=== PATIENT | male | born 1960 | race Two or more races ===

== ENCOUNTER → 2020-09-11 13:56 | Outpatient (BNVA) | payer MEDICAID, SELFPAY | PROVIDERS: PCP Internal Medicine; Referring Provider Internal Medicine; Visit Provider Nurse Practitioner | DX: Z76.89 Persons encountering health services in other specified circumstances (principal) ==

== ENCOUNTER 2021-03-03 16:46 | Emergency (ER) | payer MEDICAID, SELFPAY ==
[2021-03-03 17:09] VITALS: BP 140/80; PULSE 80; RESP 16; TEMP 36.2; O2SAT 97; BMI 30.5
--- NOTE | 2021-03-03 19:51 | PC.NURSE ---
PT NOT IN WAITING ROOM WHEN CALLED.
== END 2021-03-03 19:53 | disposition left against medical advice (07) ==
PROVIDERS: Emergency Provider Internal Medicine
DX: H57.12 Ocular pain, left eye (principal); I10 Essential (primary) hypertension; F12.90 Cannabis use, unspecified, uncomplicated
CPT/HCPCS: 99281; 99282

== ENCOUNTER 2021-03-04 08:39 | Emergency (ER) | payer MEDICAID, SELFPAY ==
[2021-03-04 09:02] VITALS: BP 134/95; PULSE 96; RESP 16; TEMP 36.9; O2SAT 96; BMI 30.5
--- NOTE | 2021-03-04 09:27 | ED_ITS ---
HPI - Eye Problem General Chief complaint: Eye Problems Stated complaint: lt eye redness/swelling Time Seen by Provider: 03/04/21 09:27 Source: patient Mode of arrival: ambulatory Limitations: no limitations History of Present Illness HPI Narrative: scratched eye when he was removing contact, now with erythema and discharge chief complaint: eye redness Onset (ago): day(s) Onset description: gradual Duration: constant Location: left eye Eye Symptoms: burning, redness and pain Place: home Mechanism: direct trauma Severity: severe Related Data Previous Rx's Medication Instructions Recorded tamsulosin 0.4 mg capsule 0.4 mg PO DAILY 90 Days #90 cap 01/07/21 besifloxacin [Besivance] 1 drp OPHTHALMIC-LEFT TID 7 Days 03/04/21 #5 ml naproxen [Naprosyn] 500 mg PO BID #20 tab 03/04/21 Allergies Allergy/AdvReac Type Severity Reaction Status Date / Time ibuprofen [From MOTRIN] Allergy Unknown DIARRHEA, Verified 09/11/20 13:56 hives Review of Systems Constitutional: Constitutional: Reports no additional constitutional complaints Eyes: Eyes: Reports no additional eye complaints ENT: Denies dizziness Cardiovascular: Cardiovascular: Reports no additional cardiovascular complaints Respiratory: Respiratory: Reports as per HPI Gastrointestinal: Gastrointestinal: Reports no additional gastrointestinal complaints Musculoskeletal: Musculoskeletal: Reports no additional musculoskeletal complaints Integumentary/Breasts: Skin/Breast: Denies rash Neurologic: Reports system reviewed and no additional complaints, except as documented, Denies dizziness and Denies Sensory deficit (Neuro) Psychiatric: Psychiatric: Denies anxiety PMFSH Past Medical History Medical History Hypertension Surgical History No pertinent past surgical history Family History Family History Mother Artificial pacemaker Father Pancreatic cancer Social History Social History Household Members: None Housing: Apartment Alcohol intake: former Year quit: 2019 Smoking Status: Never smoker Smoked in Last 30 Days: No Use of substances other than those prescribed or required for medical reasons: Yes Substance Use Type: Marijuana Substance Use Frequency: Daily Advance Directives: No Advance Directives Information Provided: No Physical Exam Vital Signs: Vital Signs: Last Vital Signs Temp 98.4 F 03/04/21 09:02 Pulse 96 03/04/21 09:02 Resp 16 03/04/21 09:02 BP 134/95 H 03/04/21 09:02 Pulse Ox 96 03/04/21 09:02 Body Mass Index 30.5 Const: Other: Patient with obvious eye pain General: healthy appearing Nutritional Appearance: average body habitus Orientation/consciousness: oriented to person and patient oriented x3 Limitations: no limitations HENMT: Head: Yes normal to inspection Ears: external ears normal General nose exam: Normal external nose present Mouth: Normal oral and palatal mucosa present and oropharynx normal Throat: Yes posterior oropharynx normal Eyes: Other: Left eye very injected, fluoresciene staining shows corneal abrasion right in the center Neck: Other: supple Neck: Yes normal visual inspection Chest: Chest palpation & inspection: normal inspection of the chest Resp: Auscultation: clear to auscultation bilaterally Cardio: Jugular venous distension: no JVD Rate: regular rate Rhythm: regular rhythm Heart sounds: S1 normal heart sound present and S2 normal h eart sound present GI: Inspection: Yes normal to inspection Palpation (GI): Soft to palpation, nontender and No hepatosplenomegaly present Auscultation: normal bowel sounds : General: Yes no CVA tenderness Back/Spine/Pelvis: Back: no CVA tenderness Skin: General skin exam: no rashes or lesions noted Neuro: General: oriented to person and patient oriented x3 Cranial nerves: Yes CN's II-XII intact bilaterally Motor exam (neuro): 5/5 motor strength present throughout Sensory Exam: No Sensory deficit (Neuro) Extrem: General: Yes normal to inspection Psych: Appearance: grossly normal Procedures Procedure Narrative Procedure Narrative: left eye numbed with tetracaine, and sulfacetamide placed. Fluoresceine showed corneal abrasion to center of eye. MDM - Eye Problem Differential Diagnosis Differential diagnosis: Likely corneal abrasion and conjunctivitis Discharge Plan Discharge Clinical Impression: Acute iritis, Bacterial conjunctivitis Corneal abrasion Qualifiers: Encounter type: initial encounter Laterality: left Qualified Code(s): S05.02XA - Injury of conjunctiva and corneal abrasion without foreign body, left eye, initial encounter Patient Disposition: Home, Self-Care Instructions: Corneal Abrasion (ED) Additional Instructions: no contact wearing for 10 days Prescriptions: New naproxen [Naprosyn] 500 mg tablet 500 mg PO BID Qty: 20 RF: 0 Besivance 0.6 % drops,suspension 1 drp ophthalmic-Left TID 7 Days Qty: 5 RF: 0 No Action tamsulosin 0.4 mg capsule 0.4 mg PO DAILY 90 Days Qty: 90 RF: 2 Referrals: Lalo Montes De Oca [Physician] - 2 days
[2021-03-04] MEDS: Tetracaine HCl/PF 0.5% Oph Sol 4 ML DROPS 3 DROP EYE-LEFT (10:55)
[2021-03-04] MEDS: Fluorescein Sodium STRIP 1 STRIP EYE-LEFT (10:55)
[2021-03-04] MEDS: Sulfacetamide Sodium 10 % Oph 15 ML DRBTL 2 DROP EYE-LEFT (10:55)
== END 2021-03-04 10:59 | disposition home or self-care (01) ==
PROVIDERS: Emergency Provider Emergency Medicine
DX: H18.822 Corneal disorder due to contact lens, left eye (principal); H20.00 Unspecified acute and subacute iridocyclitis; H10.89 Other conjunctivitis; I10 Essential (primary) hypertension; F12.90 Cannabis use, unspecified, uncomplicated
CPT/HCPCS: 99283; 99284

== ENCOUNTER → 2021-09-06 09:16 | Outpatient (BNVA) | payer MEDICAID, SELFPAY | PROVIDERS: PCP Nurse Practitioner Primary Care; Referring Provider Nurse Practitioner Primary Care; Visit Provider Internal Medicine Cardiovascular Disease | DX: R55 Syncope and collapse (principal) | CPT/HCPCS: 93005; 99202 ==

== ENCOUNTER 2021-09-10 09:39 | Outpatient (REF) | payer MEDICAID, SELFPAY ==
--- NOTE | ~2021-09-10 | CT_ITS ---
EXAMINATION: CT HEAD WITHOUT CONTRAST CLINICAL INFORMATION: Dizziness. Giddiness. COMPARISON: CT head 01/26/2020. TECHNIQUE: Contiguous axial imaging was performed from the skull base to vertex without intravenous administration of contrast. This CT examination was performed using dose optimization techniques as appropriate, variously including the following: *Automated exposure control *Adjustment of mA and/or kV according to patient size (this includes techniques or standardized protocols for targeted exams where dose is matched to indication/reason for exam; i.e. extremities or head) *Use of iterative reconstruction technique DLP: 797 mGy-cm FINDINGS: No intracranial hemorrhage, tumors or acute infarcts are noted. Mild diffuse commensurate prominence of ventricles and sulci is noted. No focal parenchymal lesions the brain visualized. Minimal segmental calcific atherosclerotic plaques are noted in the cavernous portions of the internal carotid arteries. The orbits and globes are normal in appearance. The nasal bones are partially included in the image [id number] and demonstrate bilateral contour irregularities consistent with the sequela of remote trauma. No significant opacification of the visualized paranasal sinuses, mastoid air cells and middle ear cavities. CT/CT head/brain wo con IMPRESSION: -No acute intracranial abnormalities. 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
== END 2021-09-10 09:40 | disposition home or self-care (01) ==
LOC: HO.CT 09:39
PROVIDERS: Visit Provider Emergency Medicine
DX: R42 Dizziness and giddiness (principal)
CPT/HCPCS: 70450

== ENCOUNTER 2021-09-23 10:14 | Outpatient (REF) | payer MEDICAID, SELFPAY ==
--- NOTE | ~2021-09-23 | US_ITS ---
EXAMINATION: US EXTRACRANIAL CAROTID DUPLEX, BILATERAL CLINICAL INFORMATION: This is a 60-year-old male with dizziness and giddiness. Carotid artery disease. COMPARISON: None TECHNIQUE: Real-time ultrasound and Doppler techniques (integrating B-mode 2-D vascular images, Doppler spectral analysis and color-flow Doppler imaging) were utilized to interrogate the extracranial carotid arteries, the vertebral arteries and proximal subclavian arteries bilaterally. The degree of stenosis is determined by criteria similar to NASCET. FINDINGS: Right Side: 1. There is minimal atherosclerotic plaque seen in the bifurcation/proximal ICA region. 2. The common carotid artery PSV proximally is 89 cm/s and distally 89 cm/s. 3. The proximal internal carotid artery velocities are 59 cm/s systolic and 25 cm/s diastolic. 4. The proximal external carotid artery PSV is 93 cm/s. 5. The vertebral artery shows antegrade flow. 6. The subclavian artery waveforms are normal. Left Side: 1. There is a normal atherosclerotic plaque seen in the bifurcation/proximal ICA region. 2. The common carotid artery PSV proximally is 113 cm/s and distally 66 cm/s. 3. The proximal internal carotid artery velocities are 92 cm/s systolic and 28 cm/s diastolic. 4. The proximal external carotid artery PSV is 83 cm/s. 5. The vertebral artery shows antegrade flow. 6. The subclavian artery waveforms are normal. US/US carotid duplex BI IMPRESSION: 1. RIGHT: Minimal, non-hemodynamically significant stenosis of the proximal right internal carotid artery corresponding to a 0-49% stenosis by velocity criteria. 2. LEFT: Minimal, non-hemodynamically significant stenosis of the proximal left internal carotid artery corresponding to a 0-49% stenosis by velocity criteria.
== END 2021-09-23 10:15 | disposition home or self-care (01) ==
LOC: HO.US 10:14
PROVIDERS: Visit Provider Emergency Medicine
DX: R42 Dizziness and giddiness (principal)
CPT/HCPCS: 93880

== ENCOUNTER → 2022-01-06 09:27 | Outpatient (REF) | payer MEDICAID, SELFPAY ==
--- NOTE | 2022-01-06 09:30 | CA_ITS ---
Transthoracic Echocardiogram Patient (Last, First, Middle): Dinesh Rivas, Gender: Male Date of : 1960 Age: 61 Procedure Date: 01/06/2022 Procedure Type: Transthoracic Echocardiogram Location: OP Height: 170.18 cm Weight: 92.53 kg BSA: 2.04 m2 Heart Rate: bpm BP: 132 / 80 mmHg Clinical Trial Associate: DSChristopher Referring MD: Eulalio Yuen MD Symptoms: R55 - Syncope and collapse Conclusions: - Normal left ventricular size, thickness, systolic function, and wall motion. The visually estimated ejection fraction is between 55-60%. - Normal right ventricular cavity size and systolic function. Findings Left Ventricle Normal left ventricular size, thickness, systolic function, and wall motion. The visually estimated ejection fraction is between 55-60%. Diastolic function is normal for age. Right Ventricle Normal right ventricular cavity size and systolic function. Atria Both atria are normal in size. Aortic Valve Normal aortic valve structure and function. There is no aortic valve stenosis. There is no aortic valve regurgitation. Mitral Valve Normal mitral valve structure and function. There is no mitral valve regurgitation. There is no mitral valve stenosis. Pulmonic Valve Normal pulmonic valve structure and function. Tricuspid Valve Normal tricuspid valve structure. There is trace tricuspid valve regurgitation. Indeterminate right atrial pressure. PASP = 20 + right atrial pressure. Great Vessels All visible segments of the aorta are normal in size. The visualized portions of the pulmonary artery and branches are normal. Venous The inferior vena cava was not well visualized. Pericardium/Pleural There is no evidence of pericardial effusion. Cysts are noted in the liver. Prior Study Comparison No significant change compared to prior study dated: 02/13/2008. Measurements 2D Linear Measurements IVSd: 0.98 0.6-0.9/0.6-1.0 cm LVIDd: 4.76 3.9-5.3/4.2-5.9 cm LVIDd Index: 2.33 2.4-3.2/2.2-3.1 cm/m2 LVIDs: 3.15 2.0-3.6 cm LVPWd: 0.94 0.7-1.1 cm LA Diam: 3.50 2.7-3.8/3.0-4.0 cm LAIDs Index: 1.72 1.5-2.3 cm/m2 LV Mass: 197.42 67-162/88-224 g LV Mass Index: 96.77 43-95/49-115 g/m2 LVOT Diam: 2.20 3.0+(-)1.3 cm 2D Systolic Function EF 4C: 62.10 >55% EF 2C: 66.10 >55% EF BiP: 62.80 >55% Mitral Valve MV Pk E: 0.42 MV PK A: 0.57 MV Decel Time: 151.00 E/A: 0.70 E'Lateral: 11.20 E'Medial: 5.22 E/E' Med: 8.00 E/E' Lat: 3.80 PHT: 44.00 MVA PHT: 5.00 Decel Norman: 2.78 Aortic Valve AoV Pk Tonio: 0.99 AoV Pk Grad: 4.00 LVOT LVOT Pk Tonio: 1.01 LVOT Mn Tonio: 0.72 LVOT VTI: 0.19 LVOT Pk Grad: 4.00 LVOT Mn Grad: 2.00 LVOT Diam: 2.20 LVOT Area: 3.80 Diastolic Function MV Pk E: 0.42 MV Pk A: 0.57 E/A: 0.70 E'Medial: 5.22 E/E' Med: 8.00 E' Laterial: 11.20 E/E' Lat: 3.80 Right Ventricle TAPSE (mm): 1.89 TVS' Tonio: 14.90 Tricuspid Valve TR Pk Tonio: 2.05 TR Pk Grad: 17.00 RA Press: 3.00 RVSP: 20.00 Great Vessels Aorta Ao Asc: 3.30 2.1-3.4 cm Updated in Other Vendor System with Status of Final Eulalio Yuen MD electronically signed on 01/06/2022 10:40:42 PM with status of Final
== END ==
LOC: HO.CARD 09:27
PROVIDERS: Visit Provider Internal Medicine Cardiovascular Disease
DX: R55 Syncope and collapse (principal)
CPT/HCPCS: 93306

== ENCOUNTER → 2022-03-29 08:40 | Outpatient (BNVA) | payer MEDICAID, SELFPAY | PROVIDERS: PCP Nurse Practitioner Primary Care; Visit Provider Nurse Practitioner Family | DX: G47.00 Insomnia, unspecified (principal); R06.81 Apnea, not elsewhere classified; R06.83 Snoring | CPT/HCPCS: 99202 ==

== ENCOUNTER → 2022-04-20 09:52 | Outpatient (REF) | payer MEDICAID, SELFPAY | LOC: HO.SL 09:52 | PROVIDERS: PCP Nurse Practitioner Primary Care; Visit Provider Nurse Practitioner Family | DX: Z13.89 Encounter for screening for other disorder (principal) ==

== ENCOUNTER → 2022-06-23 09:40 | Outpatient (REF) | payer MEDICAID, SELFPAY | LOC: HO.SL 09:40 | PROVIDERS: PCP Nurse Practitioner Primary Care; Visit Provider Nurse Practitioner Family | DX: R06.83 Snoring (principal); R06.81 Apnea, not elsewhere classified; G47.00 Insomnia, unspecified | CPT/HCPCS: 95806 ==

== ENCOUNTER → 2022-07-13 08:46 | Outpatient (BNVA) | payer MEDICAID, SELFPAY | PROVIDERS: PCP Nurse Practitioner Primary Care; Visit Provider Nurse Practitioner | DX: K74.60 Unspecified cirrhosis of liver (principal); B18.2 Chronic viral hepatitis C; R76.8 Other specified abnormal immunological findings in serum | CPT/HCPCS: 99212 ==

== ENCOUNTER → 2022-08-16 09:43 | Outpatient (BNVA) | payer MEDICAID, SELFPAY | PROVIDERS: PCP Nurse Practitioner Primary Care; Visit Provider Nurse Practitioner Family | DX: G47.33 Obstructive sleep apnea (adult) (pediatric) (principal); G47.00 Insomnia, unspecified | CPT/HCPCS: 99212 ==

== ENCOUNTER 2022-09-12 09:17 | Outpatient (REF) | payer MEDICAID, SELFPAY ==
[2022-09-12 09:39] LABS: MANUAL DIFF FLAG NO
[2022-09-12 10:11] LABS: Basophils Absolute Auto 0.1 X10*3/uL (0.0-0.2); Basophils Percent Auto 0.6 % (0-2); Eosinophils Absolute Auto 0.2 X10*3/uL (0.0-0.4); Eosinophils Percent Auto 2.1 % (0-4); Hemoglobin 14.6 g/dl (14.0-18.0); Imm Gran Abs Auto 0.02 X10*3/uL (0.00-0.03); Imm Gran Pct Auto 0.3 % (0.0-0.4); Lymphocytes Absolute Auto 2.4 X10*3/uL (1.2-4.9); Lymphocytes Percent Auto 29.4 % (20-40); Mean Corpuscular HGB Conc 33.2 g/dl (31.0-36.0); Mean Corpuscular Hemoglobin 30.4 pg (27.0-33.0); Mean Corpuscular Volume 91.5 fL (80.0-98.0); Mean Platelet Volume 10.8 fL (9.4-12.4); Monocytes Absolute Auto 0.5 X10*3/uL (0.1-1.2); Monocytes Percent Auto 5.6 % (2-11); Platelet Count 179 X10*3/uL (160-400); Red Blood Count 4.81 X10*6/uL (4.60-5.80); Red Cell Distribution Width 13.7 % (11.0-16.0)
[2022-09-12 10:59] LABS: Alanine Aminotransferase 53 U/L (0-40); Albumin Level 4.8 g/dL (3.5-5.0); Alkaline Phosphatase 55 U/L (39-117); Anion Gap 17 (12-20); Aspartate Amino Transferase 85 U/L (5-37); Blood Urea Nitrogen 10 mg/dL (9-16); Calcium 9.4 mg/dL (8.4-10.2); Carbon Dioxide 24 mmol/L (22-29); Chloride 99 mmol/L (96-108); Estimated Glomerular Filt Rate > 60; Gamma Glutamyl Transpeptidase 138 U/L (11-51); Glucose Random 101 mg/dL (60-115); Potassium 4.1 mmol/L (3.3-5.1); Sodium 136 mmol/L (135-145); Total Protein 9.3 g/dL (6.5-8.0)
[2022-09-12 11:00] LABS: HBS Num1 1.01 mIU/mL (0-7.99); HBc Num1 7.87 S/CO (0.00-0.79); ~Hepatitis B Surface Antibody NONREACTIVE (Nonreactive)
[2022-09-12 11:04] LABS: Ferritin 599 ng/mL (20-250)
[2022-09-12 15:16] LABS: HBc Num2 6.18 S/CO
[2022-09-12 15:18] LABS: HBc Num3 7.88 S/CO; Hepatitis B Core Antibody Reactive (Nonreactive)
[2022-09-13 08:28] LABS: Hepatitis B Core Antibody IgM NON-REACTIVE (NON-REACTIVE)
[2022-09-13 13:52] LABS: Alpha Fetoprotein 9.5 ng/mL (<6.1)
[2022-09-15 13:41] LABS: Smooth Muscle Antibody <20 U (<20)
[2022-09-15 14:32] LABS: Mitochondrial Antibodies NEGATIVE (NEGATIVE)
[2022-09-15 15:01] LABS: Hepatitis B Viral DNA Qn - cp <1.00 NOT DETECTED Log IU/mL (NOT DETECTED); Hepatitis B Viral DNA Qn-IU/mL <10 NOT DETECTED IU/mL (NOT DETECTED)
== END 2022-09-12 09:18 | disposition home or self-care (01) ==
LOC: HO.LAB 09:17
PROVIDERS: PCP Nurse Practitioner Primary Care; Visit Provider Nurse Practitioner
DX: B18.2 Chronic viral hepatitis C (principal); K74.60 Unspecified cirrhosis of liver; R76.8 Other specified abnormal immunological findings in serum
CPT/HCPCS: 36415; 80053; 82105; 82728; 82977; 85025; 86015; 86255; 86256; 86704; 86705; 86706; 87517

== ENCOUNTER 2022-10-12 08:55 | Outpatient (REF) | payer MEDICAID, SELFPAY ==
--- NOTE | ~2022-10-12 | US_ITS ---
EXAMINATION: US ABDOMEN COMPLETE CLINICAL INFORMATION: Unspecified cirrhosis of liver. COMPARISON: CT abdomen 03/03/2020. Ultrasound abdomen complete 01/30/2018 and 07/20/2017. TECHNIQUE: Real-time imaging of the abdominal viscera. FINDINGS: PANCREAS: Most of the pancreas is obscured by overlying gas. ABDOMINAL AORTA: The proximal and distal abdominal aorta is normal caliber. The mid segment is not visualized. INFERIOR VENA CAVA: Visualized portions are normal. LIVER: The liver is normal in size. The liver contour is normal. The liver is heterogeneous with mild increased liver echogenicity. No focal lesion seen. No focal hepatic lesion. There is no intrahepatic biliary duct dilatation seen. GALLBLADDER: Gallbladder wall thickness is 0.2 mL in The gallbladder is significantly distended measuring 15 cm in length. There is no evidence of stones, sludge, polyps, wall thickening or pericholecystic fluid. COMMON BILE DUCT: Normal in caliber measuring 0.3 cm in diameter. RIGHT KIDNEY: There is anechoic cyst in the upper pole laterally measuring 1.0 x 0.7 x 0.8 cm. No hydronephrosis or renal calculi. The kidney measures 11.6 cm in maximum dimension. LEFT KIDNEY: Normal. No hydronephrosis. No renal calculi or focal parenchymal lesions. The kidney measures 10.2 cm in maximum dimension. SPLEEN: Normal. The spleen measures 10.5 cm in maximum dimension. FREE FLUID: None. US/US abdomen complete IMPRESSION: Heterogeneous liver with mild increased echogenicity. No focal lesion seen. Enlarged gallbladder without echogenic stones or wall thickening. Small cyst upper pole right kidney.
== END 2022-10-12 08:56 | disposition home or self-care (01) ==
LOC: HO.US 08:55
PROVIDERS: PCP Nurse Practitioner Primary Care; Visit Provider Nurse Practitioner
DX: K74.60 Unspecified cirrhosis of liver (principal); B18.2 Chronic viral hepatitis C; R76.8 Other specified abnormal immunological findings in serum
CPT/HCPCS: 76700

== ENCOUNTER 2022-11-25 09:50 | Outpatient (REF) | payer MEDICAID, SELFPAY ==
[2022-11-25 17:33] LABS: Urine Cytology See Pathology rpt
== END 2022-11-25 09:51 | disposition home or self-care (01) ==
LOC: HO.LAB 09:50
PROVIDERS: PCP Nurse Practitioner Primary Care; Visit Provider Nurse Practitioner Family
DX: R31.29 Other microscopic hematuria (principal); R39.15 Urgency of urination; Q61.00 Congenital renal cyst, unspecified; F12.90 Cannabis use, unspecified, uncomplicated; Z79.899 Other long term (current) drug therapy; Z87.891 Personal history of nicotine dependence
CPT/HCPCS: 88112; 99202

== ENCOUNTER 2022-12-15 09:15 | Outpatient (REF) | payer MEDICAID, SELFPAY ==
--- NOTE | ~2022-12-15 | CT_ITS ---
EXAMINATION: CT ABDOMEN AND PELVIS WITHOUT AND WITH CONTRAST CLINICAL INFORMATION: Microscopic hematuria. COMPARISON: CT abdomen 03/03/2020. TECHNIQUE: Multidetector volumetric imaging was performed of the abdomen and pelvis before and after the IV administration of 85 mL of Omnipaque 350 intravenous contrast. Sagittal and coronal reformatted images were obtained on the technologist's workstation. This CT examination was performed using dose optimization techniques as appropriate, variously including the following: *Automated exposure control *Adjustment of mA and/or kV according to patient size (this includes techniques or standardized protocols for targeted exams where dose is matched to indication/reason for exam; i.e. extremities or head) *Use of iterative reconstruction technique DLP: 793 mGy-cm FINDINGS: LUNG BASES: The visualized lung bases are unremarkable. LIVER, GALLBLADDER, AND BILIARY TREE: Hypertrophy of the left hepatic lobe with subtle micronodular contour consistent with cirrhosis. There is an ill-defined area of low-attenuation measuring 7.5 x 2.6 x 3.0 cm centered in segment 4A. This is newly apparent compared to prior. Hydropic appearing gallbladder without stones, mural thickening, or pericholecystic fluid. The appearance is similar to prior. There is no biliary ductal dilatation. PANCREAS: No discrete pancreatic mass. No ductal dilatation. SPLEEN: Normal size. ADRENAL GLANDS: No adrenal mass. KIDNEYS AND URETERS: Hyperdense renal pyramids on noncontrast CT. Punctate nonobstructing calculus in the lower pole of the right kidney 8.8 cm from the skin surface. No hydroureteronephrosis. Symmetric nephrograms. Simple cyst in the mid right kidney. Other tiny parenchymal hypodensities too small to characterize but likely cysts. BLADDER: Tethering of the bladder to the left. No bladder calculus or discrete bladder mass. GASTROINTESTINAL TRACT: Small bowel is normal in caliber. The appendix is normal. Mild diverticulosis of the colon. ABDOMINAL WALL: Fat-containing direct left inguinal hernia with bladder tethering. LYMPH NODES: No lymphadenopathy. VASCULAR: No abdominal aortic aneurysm. Mild aortoiliac atherosclerosis. PELVIC VISCERA: Enlarged prostate OSSEOUS STRUCTURES: No suspicious osseous lesions. Degenerative changes in the spine. CT/CT abdomen pelvis wo/w IV con IMPRESSION: Punctate nonobstructing calculus in the lower right kidney. Ill-defined area of low-attenuation measuring 7.5 cm centered in segment 4A of the liver. This is nonspecific. This could represent an unusual distribution of fatty infiltration, focal fibrosis, but an infiltrating hepatic mass cannot be excluded, especially in a patient with a history of chronic liver disease. Recommend further evaluation with liver mass protocol MRI. Fleischner guidelines were followed.
[2022-12-15] MEDS: iohexoL 350 MG/ML 100 ML INFUS..BTL IV (09:52)
[2022-12-19 14:24] LABS: Creatinine POC 0.9 mg/dL (0.5-1.4); GFR POC 60
== END 2022-12-15 09:16 | disposition home or self-care (01) ==
LOC: HO.CT 09:15
PROVIDERS: PCP Nurse Practitioner Primary Care; Visit Provider Nurse Practitioner Family
DX: R31.29 Other microscopic hematuria (principal)
CPT/HCPCS: 74178; 82565; Q9967

== ENCOUNTER → 2023-01-23 09:20 | Outpatient (BNVA) | payer MEDICAID, SELFPAY | PROVIDERS: PCP Nurse Practitioner Primary Care; Visit Provider Surgery | DX: K42.9 Umbilical hernia without obstruction or gangrene (principal) | CPT/HCPCS: 99202 ==

== ENCOUNTER → 2023-02-01 09:08 | Outpatient (BNVA) | payer MEDICAID, SELFPAY | PROVIDERS: PCP Nurse Practitioner Primary Care; Visit Provider Urology | DX: Z12.5 Encounter for screening for malignant neoplasm of prostate (principal); R31.29 Other microscopic hematuria; N20.0 Calculus of kidney; Z87.891 Personal history of nicotine dependence | CPT/HCPCS: 51798; 99212 ==

== ENCOUNTER 2023-02-21 07:06 | Day surgery (SDC) | payer MEDICAID, SELFPAY ==
--- NOTE | 2023-02-17 11:09 | HO.ANESPROP2 ---
Documented by User: Charis Castillo NP 02/17/23 11:14 HPI - Anesthesia Eval Consult details Narrative: 62yo M for Cystoscopy & possible Bladder Biopsy PMFSH Active Problems Active Problems: All Active Problems (Updated 02/01/23 @ 10:08 by Zoraida Ann) History of nicotine use (Acute) Kidney stone (Acute) Screening PSA (prostate specific antigen) (Acute) Umbilical hernia (Acute) Microscopic hematuria (Acute) ANA (obstructive sleep apnea) (Acute) Insomnia (Acute) Witnessed apneic spells (Acute) Snoring (Acute) History of alcohol abuse (Acute) Erectile dysfunction (Acute) BPH (benign prostatic hyperplasia) (Acute) Chronic idiopathic constipation (Acute) GERD (gastroesophageal reflux disease) (Acute) Hepatitis B antibody positive (Acute) Hypothyroid (Acute) Chronic hepatitis C (Acute) Syncope (Acute) Cirrhosis (Acute) Past Medical History Medical History (Updated 02/17/23 @ 11:10 by Charis Castillo NP) Chronic hepatitis C Chronic idiopathic constipation Cirrhosis GERD (gastroesophageal reflux disease) History of alcohol abuse Hypertension Hypothyroid ANA (obstructive sleep apnea) Umbilical hernia Family History Family History Mother Artificial pacemaker Father Pancreatic cancer Surgical History Surgical History (Updated 02/21/23 @ 07:14 by Marleen Muller) History of removal of cyst Hx of chest tube placement Social History Social History Household Members: None Housing: Apartment Do you presently have visiting nurse or other home services: No Alcohol intake: current Alcohol intake frequency: a few times a month Patient Tobacco Use Status: Never used Tobacco Use of substances other than those prescribed or required for medical reasons: Yes Substance Use Type: Marijuana Have you been hit, kicked, punched, or otherwise hurt by someone within the past year? If so, by whom?: No Are you DNR?: No Advance Directives: No Advance Directives Information Provided: Yes Advance Directives on File: No Poor oral hygiene: Yes (partial upper) Meds Allergies Allergy/AdvReac Type Severity Reaction Status Date / Time ibuprofen [From MOTRIN] Allergy Unknown Itching Verified 02/21/23 07:12 Home Medications Medication Instructions Recorded Confirmed Last Taken Type levothyroxine 75 mcg tablet 75 mcg PO DAILY 09/06/21 02/21/23 02/21/23 01:30 History lisinopril 10 1 tab PO DAILY 09/06/21 02/21/23 02/20/23 History mg-hydrochlorothiazide 12.5 mg tablet rosuvastatin 5 mg tablet 5 mg PO DAILY 06/07/22 02/21/23 Unknown History melatonin 5 mg tablet 10 mg PO BEDTIME 07/13/22 02/21/23 Unknown History Exam Exam Date and Time: February 17, 2023 1109 Height,Weight and Vital Signs: Height 5 ft 7 in Weight 87.09 kg Pertinent Lab Results Pertinent Lab Results: Laboratory Tests 09/12/22 09/12/22 09:36 09:36 WBC 8.0 Hgb 14.6 Hct 44.0 Plt Count 179 Sodium 136 Potassium 4.1 Chloride 99 Carbon Dioxide 24 BUN 10 Creatinine 0.99 Laboratory Tests 09/12/22 09:36 Ferritin 599 H Total Bilirubin 1.0 GGT 138 H AST 85 H ALT 53 H Alkaline Phosphatase 55 Narrative Narrative: ECHO 2021 Conclusions: - Normal left ventricular size, thickness, systolic function, and wall motion. The visually estimated ejection fraction is between 55-60%.? - Normal right ventricular cavity size and systolic function.? ? Assessment and Plan Assessment Anesthesia Assessment: Chart Reviewed Documented by User: Sallie Dover MD 02/21/23 08:31 [facility] Past Medical History Medical History (Updated 02/17/23 @ 11:10 by Charis Castillo NP) Chronic hepatitis C Chronic idiopathic constipation Cirrhosis GERD (gastroesophageal reflux disease) History of alcohol abuse Hypertension Hypothyroid ANA (obstructive sleep apnea) Umbilical hernia Family History Family History Mother Artificial pacemaker Father Pancreatic cancer Family history of problems with anesthesia: No Surgical History Surgical History (Updated 02/21/23 @ 07:14 by Marleen Muller) History of removal of cyst Hx of chest tube placement History of Problems with Anesthesia: No Social History Social History Household Members: None Housing: Apartment Do you presently have visiting nurse or other home services: No Alcohol intake: current Alcohol intake frequency: a few times a month Patient Tobacco Use Status: Never used Tobacco Use of substances other than those prescribed or required for medical reasons: Yes Substance Use Type: Marijuana Have you been hit, kicked, punched, or otherwise hurt by someone within the past year? If so, by whom?: No Are you DNR?: No Advance Directives: No Advance Directives Information Provided: Yes Advance Directives on File: No Poor oral hygiene: Yes (partial upper) Meds Allergies Allergy/AdvReac Type Severity Reaction Status Date / Time ibuprofen [From MOTRIN] Allergy Unknown Itching Verified 02/21/23 07:12 Home Medications Medication Instructions Recorded Confirmed Last Taken Type levothyroxine 75 mcg tablet 75 mcg PO DAILY 09/06/21 02/21/23 02/21/23 01:30 History lisinopril 10 1 tab PO DAILY 09/06/21 02/21/23 02/20/23 History mg-hydrochlorothiazide 12.5 mg tablet rosuvastatin 5 mg tablet 5 mg PO DAILY 06/07/22 02/21/23 Unknown History melatonin 5 mg tablet 10 mg PO BEDTIME 07/13/22 02/21/23 Unknown History Exam Airway Mallampati Class: II TM Dist: >3cm Neck ROM: Full Loose/Missing/Broken Teeth: Yes, Upper and Lower Heart: rrr Lungs: cta Assessment and Plan Assessment Anesthesia Assessment: Anesthesia Plan Discussed Final Anesthetic Review Family History of Problems with Anesthesia: No History of Problems with Anesthesia: No NPO: Yes ASA Class: II Final Preanesthetic Review: No Changes in Pt Med Stat, Meds/Allgs Chart Reviewed, Consent Obtained/Reviewed and Anes Risks/Benef Reviewed Patient Risk: Low Procedure Risk: Low Anesthetic Plan Anesthetic Plan: GA Disposition: Standard PACU
[2023-02-21 07:08] VITALS: BP 151/79; PULSE 73; RESP 16; TEMP 36.2; O2SAT 98
--- NOTE | 2023-02-21 07:29 | MHC.SHP ---
Pre-Procedural Eval Section A Date of Service: 02/21/23 The patient is an INPATIENT: No The History & Physical has been completed within 30 days and I have reviewed it.: Yes Section B Chief Complaint: Other microscopic hematuria Allergies: Allergies Allergy/AdvReac Type Severity Reaction Status Date / Time ibuprofen [From MOTRIN] Allergy Unknown Itching Verified 02/21/23 07:12 Plan Diagnosis/Plan: Unchanged I have reviewed the history and physical and performed a pertinent physical examination on my patient. No changes have occurred unless specified. Cystoscopy possible bladder biopsy. Discussed risks to include but not limited to, blood in the urine, burning with urination, urgency. Time Spent With Patient Time: Total time managing care of this patient today ____ minutes.
[2023-02-21] MEDS: Lactated Ringers 1,000 ML 100 ML IVCONT (07:30)
[2023-02-21 09:20] VITALS: BP 127/79; PULSE 89; RESP 18; TEMP 36.5; O2SAT 91
--- NOTE | 2023-02-21 09:23 | P.OP_ITS ---
Operative Note Operative Note Date of Service: 02/21/23 Narrative: PREOP DIAGNOSIS: Hematuria, history of nicotine use POSTOP DIAGNOSIS: Hematuria, history of nicotine use PROCEDURE: CYSTOSCOPY SURGEON: Paris Chen MD ANESTHESIA: GENERAL Indications: Dinesh is a 62-year-old gentleman who is here for further evaluation hematuria. He has a history of nicotine use quit [address] imaging noted punctate nephrolithiasis. Urine cytology atypical cells. Details of procedure: The patient was brought into the operating room placed on the OR table in supine position. 2 g of Ancef IV. General anesthesia was administered. The patient was repositioned into lithotomy position, prepped and draped in the usual sterile fashion. Time-out was done per protocol. 2% lidocaine jelly 10 mL was placed transurethrally. A 22 fr cystoscope was placed transurethrally into the bladder. The bulbous urethra was within normal limits. The prostatic urethra noted trilobar enlargement left greater than right with obstructive median lobe The right and left ureteral orifices were visualized. The entire bladder was visualized. Moderate trabeculations and cellule changes. No suspicious bladder lesions visualized or erythematous changes n oted. There was some oozing from the prostatic urethra due to the instrumentation. The cystoscope was removed. 2% lidocaine urojet was passed transurethrally into the bladder. The patient was brought out of anesthesia and taken to recovery in stable condition. Complications: None Drains: None
[2023-02-21 09:25] VITALS: BP 128/79; PULSE 87; RESP 23; O2SAT 93
[2023-02-21 09:30] VITALS: BP 124/79; PULSE 80; RESP 17; O2SAT 95
[2023-02-21 09:35] VITALS: BP 141/82; PULSE 76; RESP 22; O2SAT 93
[2023-02-21 09:50] VITALS: BP 129/84; PULSE 79; RESP 17; TEMP 36.6; O2SAT 95
[2023-02-21] MEDS: Phenazopyridine HCL 100 MG TABLET 200 MG PO (10:04)
== END 2023-02-21 10:40 | disposition home or self-care (01) ==
PROVIDERS: PCP Nurse Practitioner Primary Care; Visit Provider Urology
PROC: (CPT 52000; principal; 2023-02-21 08:20)
DX: R31.29 Other microscopic hematuria (principal); N20.0 Calculus of kidney; N40.0 Benign prostatic hyperplasia without lower urinary tract symptoms; N32.89 Other specified disorders of bladder; I10 Essential (primary) hypertension; G47.33 Obstructive sleep apnea (adult) (pediatric); K74.60 Unspecified cirrhosis of liver; B18.2 Chronic viral hepatitis C; Z79.899 Other long term (current) drug therapy; Z88.8 Allergy status to other drugs, medicaments and biological substances; F12.90 Cannabis use, unspecified, uncomplicated; Z87.891 Personal history of nicotine dependence
CPT/HCPCS: 52000; J0690; J2250; J2405; J3010

== ENCOUNTER 2023-03-14 06:00 | Day surgery (SDC) | payer MEDICAID, SELFPAY ==
[2023-03-09 10:22] VITALS: BMI 28.8
--- NOTE | 2023-03-13 09:31 | P.CONAN_ITS ---
Documented by User: Charis Castillo NP 03/13/23 09:31 HPI - Anesthesia Eval Consult details Narrative: 62yo M for Hernia Repair Umbilical,with possible mesh s/p cysto, bladd bx 02/2023 with GA-LMA 4 PMFSH Active Problems Active Problems: All Active Problems (Updated 02/17/23 @ 11:10 by Charis Castillo NP) Syncope (Acute) Hepatitis B antibody positive (Acute) BPH (benign prostatic hyperplasia) (Acute) Erectile dysfunction (Acute) Snoring (Acute) Witnessed apneic spells (Acute) Insomnia (Acute) Microscopic hematuria (Acute) Screening PSA (prostate specific antigen) (Acute) Kidney stone (Acute) History of nicotine use (Acute) Umbilical hernia (Acute) Past Medical History Medical History (Updated 02/17/23 @ 11:10 by Charis Castillo NP) Chronic hepatitis C Chronic idiopathic constipation Cirrhosis GERD (gastroesophageal reflux disease) History of alcohol abuse Hypertension Hypothyroid ANA (obstructive sleep apnea) Umbilical hernia Family History Family History Mother Artificial pacemaker Father Pancreatic cancer Family history of problems with anesthesia: No Surgical History Surgical History (Updated 02/21/23 @ 07:14 by Marleen Muller) History of removal of cyst Hx of chest tube placement History of Problems with Anesthesia: No Social History Social History Household Members: None Housing: Apartment Are you a primary cardiac care nurse to a significant other at home: No Do you presently have visiting nurse or other home services: No Alcohol intake: current Alcohol intake frequency: a few times a month Patient Tobacco Use Status: Never used Tobacco Use of substances other than those prescribed or required for medical reasons: Yes Substance Use Type: Marijuana Have you been hit, kicked, punched, or otherwise hurt by someone within the past year? If so, by whom?: No Are you DNR?: No Advance Directives: Yes Advance Directives Information Provided: No Advance Directives on File: Yes Advance Directives Date on File: 11/24/16 Recently lost weight without trying: No Eating poorly because of decreased appetite: No Nutrition Risks: No Nutritional Risk Meds Allergies Allergy/AdvReac Type Severity Reaction Status Date / Time ibuprofen [From MOTRIN] Allergy Unknown Itching Verified 03/09/23 10:25 Home Medications Medication Instructions Recorded Confirmed Last Taken Type levothyroxine 75 mcg tablet 75 mcg PO DAILY 09/06/21 03/09/23 02/21/23 01:30 History lisinopril 10 1 tab PO DAILY 09/06/21 03/09/23 02/20/23 History mg-hydrochlorothiazide 12.5 mg tablet rosuvastatin 5 mg tablet 5 mg PO DAILY 06/07/22 03/09/23 Unknown History melatonin 5 mg tablet 10 mg PO BEDTIME 07/13/22 03/09/23 Unknown History Exam Exam Date and Time: March 13, 2023 0931 Height,Weight and Vital Signs: Height 5 ft 7 in Weight 83.461 kg Pertinent Lab Results Pertinent Lab Results: Laboratory Tests 09/12/22 09/12/22 09:36 09:36 WBC 8.0 Hgb 14.6 Hct 44.0 Plt Count 179 Sodium 136 Potassium 4.1 Chloride 99 Carbon Dioxide 24 BUN 10 Creatinine 0.99 Laboratory Tests 09/12/22 09:36 Ferritin 599 H Total Bilirubin 1.0 GGT 138 H AST 85 H ALT 53 H Alkaline Phosphatase 55 Narrative Narrative: ECHO 2021 Conclusions: - Normal left ventricular size, thickness, systolic function, and wall motion. The visually estimated ejection fraction is between 55-60%.? - Normal right ventricular cavity size and systolic function.? ? Assessment and Plan Assessment Anesthesia Assessment: Chart Reviewed Final Anesthetic Review Family History of Problems with Anesthesia: No History of Problems with Anesthesia: No Documented by User: Humberto Kasper MD 03/14/23 07:15 [facility] Past Medical History Medical History (Updated 02/17/23 @ 11:10 by Charis Castillo NP) Chronic hepatitis C Chronic idiopathic constipation Cirrhosis GERD (gastroesophageal reflux disease) History of alcohol abuse Hypertension Hypothyroid ANA (obstructive sleep apnea) Umbilical hernia Family History Family History Mother Artificial pacemaker Father Pancreatic cancer Surgical History Surgical History (Updated 02/21/23 @ 07:14 by Marleen uMller) History of removal of cyst Hx of chest tube placement Social History Social History Household Members: None Housing: Apartment Are you a primary cardiac care nurse to a significant other at home: No Do you presently have visiting nurse or other home services: No Alcohol intake: current Alcohol intake frequency: a few times a month Patient Tobacco Use Status: Never used Tobacco Use of substances other than those prescribed or required for medical reasons: Yes Substance Use Type: Marijuana Have you been hit, kicked, punched, or otherwise hurt by someone within the past year? If so, by whom?: No Are you DNR?: No Advance Directives: Yes Advance Directives Information Provided: No Advance Directives on File: Yes Advance Directives Date on File: 11/24/16 Recently lost weight without trying: No Eating poorly because of decreased appetite: No Nutrition Risks: No Nutritional Risk Meds Allergies Allergy/AdvReac Type Severity Reaction Status Date / Time ibuprofen [From MOTRIN] Allergy Unknown Itching Verified 03/09/23 10:25 Home Medications Medication Instructions Recorded Confirmed Last Taken Type levothyroxine 75 mcg tablet 75 mcg PO DAILY 09/06/21 03/09/23 02/21/23 01:30 History lisinopril 10 1 tab PO DAILY 09/06/21 03/09/23 02/20/23 History mg-hydrochlorothiazide 12.5 mg tablet rosuvastatin 5 mg tablet 5 mg PO DAILY 06/07/22 03/09/23 Unknown History melatonin 5 mg tablet 10 mg PO BEDTIME 07/13/22 03/09/23 Unknown History Exam Airway Mallampati Class: II TM Dist: >3cm Neck ROM: Limited Heart: rrr Lungs: cta Assessment and Plan Assessment Anesthesia Assessment: Anesthesia Plan Discussed Final Anesthetic Review NPO: Yes ASA Class: III Final Preanesthetic Review: No Changes in Pt Med Stat, Meds/Allgs Chart Reviewed, Consent Obtained/Reviewed and Anes Risks/Benef Reviewed Patient Risk: Intermediate Procedure Risk: Intermediate Anesthetic Plan Anesthetic Plan: GA Disposition: Standard PACU
[2023-03-14] VITALS (12 sets, daily range): BP systolic 137–147; BP diastolic 79–96; PULSE 62–85; RESP 12–17; TEMP 36.2–36.5; O2SAT 92–99
[2023-03-14] MEDS: Lactated Ringers 1,000 ML 100 ML IVCONT (06:39)
--- NOTE | 2023-03-14 07:19 | MHC.SHP ---
Pre-Procedural Eval Section A Date of Service: 03/14/23 Section B Chief Complaint: Umbilical hernia without obstruction or gangrene Details of Present Illness: Has reducible mass on the umbilicus consistent with hernia Relevant Family History (Specify if Yes): No Relevant Social History: None Present Medications: see Short Stay Collaborative assessment Medical History: Significant History ( BPH, history of kidney stones, history of nicotine use) History of Previous Operations: No relevant previous surgery Allergies: Allergies Allergy/AdvReac Type Severity Reaction Status Date / Time ibuprofen [From MOTRIN] Allergy Unknown Itching Verified 03/09/23 10:25 Review of Systems Sugical H&P ROS: Negative: Constitution, Cardiovascular, Respiratory, Neurological, Psychiatric, Hem-Onc, Allergic/Immunologic, Gastrointestinal, Musculoskeletal, Integumentary, Endocrine and Eyes/Ears/Nose/Throat and Yes, Specify: Genitourinary ( history of hematuria, had cystoscopy 3 weeks ago) Exam Surgical H&P Exam: Normal: HEENT, Normal: Heart, Normal: Lungs, Normal: Extremities, Normal: Skin and Normal: Neurological and Significant Findings: Abdomen ( umbilical hernia, reducible) Plan Diagnosis/Plan: Unchanged I have reviewed the history and physical and performed a pertinent physical examination on my patient. No changes have occurred unless specified. Time Spent With Patient Time: Total time managing care of this patient today ____ minutes.
--- NOTE | 2023-03-14 08:02 | W.PM.OPN ---
Operative Note Operative Note Date of Service: 03/14/23 Narrative: Preop diagnosis: Umbilical hernia Postop diagnosis umbilical hernia Procedure: Repair of umbilical hernia with Ventralex mesh Surgeon: Robert Polk MD financial planning assistant: ISRAEL De Luna The patient is a 62-year-old male with a reducible mass on the umbilicus consistent with an umbilical hernia. He understood the technique of repair with mesh. He was aware of the risks, benefits, and alternatives. He was brought to the operating room. He was placed supine under general anesthesia via laryngeal mask airway. The periumbilical area was prepped and draped in the usual sterile fashion. A surgical time-out was done. The patient received cefazolin 2 g IV preoperatively. I made a short incision, transverse, curvilinear and infraumbilical using blade 15 after infiltration of the area with lidocaine 1%. I deepened the incision with electrocautery until I was the lyse the hernia. I sharply dissected the hernia off of the rest of the umbilicus. I therefore lifted this umbilicus as a flap off of the hernia contents. I dissected the hernia contents down to the fascia. I will therefore was able to define the fascial defect. I able to reduce the entire hernia contents which contain only fat. The hernia defect was about 1 cm in diameter. I used a small-sized Ventralex mesh. I flattened this under the abdominal wall. I secured the Prolene straps of the mesh to the fascia using Prolene 2 sutures. I trimmed the Prolene straps flush on the fascial level. I then closed the fascia with the figure-eight Maxon 1 stitch. The umbilicus was tacked down the fascia with Polysorb 3-0 sutures to recreate the dimple. The subcutaneous layer was reapposed with Dexon 3-0 interrupted sutures. Skin closure was achieved with Dexon 4-0 subcuticular running stitch. The area was infiltrated with Marcaine 0.5% possible HANNA. Dressings were applied. The procedure was completed. The patient tolerated procedure well. There were no immediate complications. Initial and fine counts of sponges and instruments were correct. Estimated blood loss was less than 5 cc. The patient was extubated without difficulty and transferred to the recovery with stable vital signs
[2023-03-14] MEDS: fentaNYL citrate/PF 100 MCG/2 ML VIAL 25 MCG IVPUSH ×2 (08:23→08:27)
[2023-03-14] MEDS: oxyCODONE HCl Immed Release 5 MG TABLET PO ×2 (08:23→09:06)
[2023-03-14] MEDS: HYDROmorphone HCl 0.5 MG/0.5 ML SYRINGE 0.25 MG IVPUSH ×2 (08:43→08:50)
== END 2023-03-14 10:14 | disposition home or self-care (01) ==
PROVIDERS: PCP Nurse Practitioner Primary Care; Visit Provider Surgery
PROC: (CPT 49591; principal; 2023-03-14 07:30)
DX: K42.9 Umbilical hernia without obstruction or gangrene (principal); I10 Essential (primary) hypertension; K59.04 Chronic idiopathic constipation; K74.60 Unspecified cirrhosis of liver; E03.9 Hypothyroidism, unspecified; G47.33 Obstructive sleep apnea (adult) (pediatric); Z79.899 Other long term (current) drug therapy; Z88.8 Allergy status to other drugs, medicaments and biological substances; F12.90 Cannabis use, unspecified, uncomplicated
CPT/HCPCS: 49591; C1781; J0690; J1100; J1170; J1885; J2405; J2795; J3010

== ENCOUNTER 2023-03-29 09:05 | Outpatient (REF) | payer MEDICAID, SELFPAY ==
--- NOTE | ~2023-03-29 | XR_ITS ---
EXAMINATION: XR FOOT, LEFT CLINICAL INFORMATION: Pain great toe COMPARISON: Radiographs left foot 11/28/2016 TECHNIQUE: AP, lateral, and oblique views of the left foot. FINDINGS: Normal bony mineralization. No acute or healing fracture, dislocation, destructive process, or periostitis. Again, there are osteoarthritic changes first MTP joint with joint narrowing and osteophytes lateral side and lesser dorsal side. There is probable small geode first metatarsal head lateral to midline. There is a small posterior calcaneal spur. XR/XR foot LT min 3V IMPRESSION: - Osteoarthritis first MTP. - Small posterior calcaneal spur. - No fracture, destructive process, or periostitis.
== END 2023-03-29 09:06 | disposition home or self-care (01) ==
LOC: HO.XRAY 09:05
PROVIDERS: Absent Provider Nurse Practitioner Primary Care; PCP Nurse Practitioner Primary Care; Visit Provider Surgery
DX: M79.675 Pain in left toe(s) (principal); K42.9 Umbilical hernia without obstruction or gangrene
CPT/HCPCS: 73630

== ENCOUNTER 2023-09-04 10:28 | Outpatient (REF) | payer MEDICAID, SELFPAY ==
--- NOTE | ~2023-09-04 | MR_ITS ---
EXAMINATION: MR ABDOMEN WITHOUT AND WITH CONTRAST CLINICAL INFORMATION: History of cirrhosis. Treated HCV. Abnormal prior imaging. COMPARISON: 12/15/2022 and 10/12/2022 TECHNIQUE: MR abdomen was performed without and with use of 8.5 mL intravenous Gadavist gadolinium contrast. Postcontrast images are performed in multiphase dynamic sequences. Imaging was performed in 3 planes. FINDINGS: LUNG BASES: The visualized lung bases are unremarkable. LIVER, GALLBLADDER, AND BILIARY TREE: Hypertrophy of the left hepatic lobe with subtle micronodular contour consistent with cirrhosis. Hepatic steatosis. Relatively hypoenhancing focus in segment 4A shows fat suppression and loss of signal on out of phase imaging. This correlates with the recent abdominal CT. No suspicious features such as arterial phase hyperenhancement or washout characteristics. No biliary ductal dilatation is present. The gallbladder remains hydropic without obvious pericholecystic inflammatory changes. PANCREAS: No ductal dilatation. SPLEEN: Not enlarged. ADRENAL GLANDS: No adrenal mass. KIDNEYS AND URETERS: The kidneys are normal in size, shape, and enhance symmetrically. No hydronephrosis. No perinephric stranding. GASTROINTESTINAL TRACT: No bowel obstruction. LYMPH NODES: No bulky abdominal lymphadenopathy. VASCULAR: Normal caliber abdominal aorta. MR/MR abdomen wo/w con IMPRESSION: Relatively amorphous area of fat infiltration within segment 4A corresponding to the recent CT. No suspicious features. Short interval follow-up to assess stability. Hydropic gallbladder. This appears to be a chronic finding based on prior imaging.
[2023-09-04] MEDS: gadobutroL 10 ML VIAL IVPUSH (11:51)
== END 2023-09-04 10:29 | disposition home or self-care (01) ==
LOC: HO.MRI 10:28
PROVIDERS: PCP Nurse Practitioner Primary Care; Visit Provider Nurse Practitioner Primary Care
DX: R93.2 Abnormal findings on diagnostic imaging of liver and biliary tract (principal)
CPT/HCPCS: 74183; A9585

== ENCOUNTER 2023-09-13 14:28 | Outpatient (AMB) | payer MEDICAID, SELFPAY ==
--- NOTE | 2023-09-13 14:30 | A.OFFVIS_ITS ---
Intake Vital Signs 09/13/23 14:31 Weight 188 lb 2 oz BP 100/90 H Blood Pressure Location Lt brachial Position Sitting Pulse 94 Pulse Source Pulse Oximeter Pulse Oximetry (%) 96 Oxygen Delivery Method Room Air Intake Visit Reasons: follow up-Confirmed Intake Note: PT is here for ANA fup, has stopped using machine x 6 months Allergies ibuprofen [From MOTRIN] Allergy (Unknown, Verified 09/13/23 14:33) Itching Medication List - Last Reconciled 09/13/23 by Eirka Grewal CNP docusate sodium (Colace) 100 mg PO BID hydroxyzine pamoate 25 - 50 mg PO BEDTIME PRN levothyroxine 75 mcg PO DAILY lisinopril-hydrochlorothiazide 10-12.5 mg 1 tab PO DAILY rosuvastatin 5 mg PO DAILY tamsulosin 0.4 mg PO DAILY 90 days HPI HPI Comments History of Present Illness Details 61 y/o male patient presents for follow up of sleep study. The home sleep study result was significant for a mild degree of sleep apnea. The total AHI was 6/hr and oxygen raysa was 75 %. APAP 5-20cm H2O ordered in July. Pt tried CPAP but not used enough, and returned his CPAP in February. He tosses and turns a lot, could not sleep well with the CPAP. Pt still having difficulty maintaining sleep. His routine sleep schedule is 7 pm to 5:45 am but wakes up frequently. He uses hydroxyzine 25 mg qHS and it helps him to sleep better. Pt continues to endorse daytime sleepiness. [facility] Medical History (Updated 09/13/23 @ 14:42 by Erika Grewal CNP) ANA (obstructive sleep apnea) Umbilical hernia History of alcohol abuse Chronic idiopathic constipation GERD (gastroesophageal reflux disease) Hypothyroid Chronic hepatitis C Hypertension Cirrhosis Surgical History History of umbilical hernia repair Hx of chest tube placement History of removal of cyst Family History Mother Artificial pacemaker Father Pancreatic cancer Social History Household Members: None Housing: Apartment Are you a primary hospice care transitions coordinator to a significant other at home: No Do you presently have visiting nurse or other home services: No Alcohol intake: current Alcohol intake frequency: a few times a month Patient Tobacco Use Status: Never used Tobacco Substance Use Type: Marijuana Advance Directives Date on File: 11/24/16 Review of Systems Const All systems reviewed & are unremarkable except as noted in HPI and below ENT Reports Normal hearing present Neuro Reports Normal hearing present Physical Exam Vital Signs: Last Vital Signs Pulse 94 09/13/23 14:31 BP 100/90 H 09/13/23 14:31 Pulse Ox 96 09/13/23 14:31 Oxygen Delivery Method Room Air 09/13/23 14:31 Const General: cooperative and no acute distress Nutritional Appearance: obese Orientation/consciousness: patient oriented x3 Limitations: no limitations HEENT Head: Yes normocephalic Throat: Yes other (mallampati score 4) Neck Neck: Yes full ROM and Yes supple Resp Effort & Inspection: normal respiratory effort and able to speak in complete sentences Neuro General: patient oriented x3, gait normal and moves all extremities Cranial nerves: Yes Bilaterally intact EOM present, Yes Normal facial strength present, Yes Midline tongue present, Yes Normal hearing present, Yes Ability to bilaterally rotate head present and Yes Ability to bilaterally elevate shoulders present Cognition (Neuro): normal cognition Gait exam (Neuro): Normal gait present Psych Appearance: grossly normal Mental Status: mental status grossly normal Speech and movement: Normal speech and movement present Assessment & Plan Assessment & Plan (1) ANA (obstructive sleep apnea): Comment: mild degree of sleep apnea. The total AHI was 6/hr and oxygen raysa was 75% Code(s): G47.33 - Obstructive sleep apnea (adult) (pediatric) Plan Refer patient to [facility] for mandibular advancement device to treat his mild degree of sleep apnea. Wt reduction advised. Sleep hygiene education provided. Will repeat sleep study with mandibular device. Orders: Referrals Dentistry Referral G47.33 - Obstructive sleep apnea (adult) (pediatric) Coding Level of Care Code Est Pt Level 3 (77174) Diagnoses ANA (obstructive sleep apnea) G47.33
[2023-09-13 14:31] VITALS: BP 100/90; PULSE 94; O2SAT 96
== END 2023-09-13 14:45 | disposition home or self-care (01) ==
PROVIDERS: PCP Nurse Practitioner Primary Care; Visit Provider Nurse Practitioner Family
DX: G47.33 Obstructive sleep apnea (adult) (pediatric) (principal)
CPT/HCPCS: 99213

== ENCOUNTER → 2023-09-13 14:28 | Outpatient (BNVA) | payer MEDICAID, SELFPAY | PROVIDERS: PCP Nurse Practitioner Primary Care; Visit Provider Nurse Practitioner Family | DX: G47.33 Obstructive sleep apnea (adult) (pediatric) (principal) | CPT/HCPCS: 99212 ==

== ENCOUNTER 2023-09-22 09:48 | Outpatient (REF) | payer MEDICAID, SELFPAY ==
[2023-09-22 16:51] LABS: Urine Cytology See Pathology rpt
== END 2023-09-22 09:49 | disposition home or self-care (01) ==
LOC: HO.LAB 09:48
PROVIDERS: PCP Nurse Practitioner Primary Care; Visit Provider Urology
DX: R31.29 Other microscopic hematuria (principal); N20.0 Calculus of kidney; S76.219A Strain of adductor muscle, fascia and tendon of unspecified thigh, initial encounter; Z87.891 Personal history of nicotine dependence
CPT/HCPCS: 81003; 88112; 99212

== ENCOUNTER 2023-09-22 09:48 | Outpatient (AMB) | payer MEDICAID, SELFPAY ==
--- NOTE | 2023-09-22 09:59 | A.OFFVIS_ITS ---
Intake Intake Visit Reasons: Post outpatient cystoscopy/litholink(SET) Intake Note: Patient is present for follow up on Post Op Outpatient Cystoscope: Urology Medications: Tamsulosin Allergies to Antibiotic- No Known Allergies Blood Thinner: none Mosaic Floor Layer Required: No Accompanied by: Self / Same As Patient Allergies ibuprofen [From MOTRIN] Allergy (Unknown, Verified 09/13/23 14:33) Itching Medication List - Last Reconciled 09/22/23 by Paris Chen MD docusate sodium (Colace) 100 mg PO BID hydroxyzine pamoate 25 - 50 mg PO BEDTIME PRN levothyroxine 75 mcg PO DAILY lisinopril-hydrochlorothiazide 10-12.5 mg 1 tab PO DAILY rosuvastatin 5 mg PO DAILY tamsulosin 0.4 mg PO DAILY 90 days HPI HPI Comments History of Present Illness Details Dinesh is a 62-year-old male who presents today to the office for a follow-up. 09/22/2023? He is followed today for post op outpatient cystoscopy. Discussed that Cysto findings: Bladder wall thickening, no suspicious lesions observed. He is complaining of pain in the right testicle that radiates to the right groin region. He states this symptoms is chronic and did not start after the cystoscopy. I reviewed the 24-hour urine collection test with the patient. Results reviewed: urine volume was 4.17 L, urine soidum was silghtly elevated at 152 and urine citrate was lower than recommended at 336. Urine Ca, Ox and uric acid all WNL Examination: testicles: Both the testicles were normal, there was tenderness in the right groin Discussed OTC NSAID or tylenol but the patient states he is unable to use do to liver condition. 09/22/2023: Plan: Repeat urine cytology was ordered. PSA screening test was ordered. Follow-up with Inna Cramer in one year. [facility] Medical History (Updated 09/22/23 @ 19:25 by Paris Chen MD) ANA (obstructive sleep apnea) Umbilical hernia History of alcohol abuse Chronic idiopathic constipation GERD (gastroesophageal reflux disease) Hypothyroid Chronic hepatitis C Hypertension Cirrhosis Surgical History History of umbilical hernia repair Hx of chest tube placement History of removal of cyst Family History Mother Artificial pacemaker Father Pancreatic cancer Social History Household Members: None Housing: Apartment Are you a primary career coordinator to a significant other at home: No Do you presently have visiting nurse or other home services: No Alcohol intake: current Alcohol intake frequency: a few times a month Patient Tobacco Use Status: Never used Tobacco Substance Use Type: Marijuana Advance Directives Date on File: 11/24/16 Review of Systems Const All systems reviewed & are unremarkable except as noted in HPI and below Reports no additional complaints Eyes Reports no additional complaints ENT Reports Normal hearing present Card Denies dyspnea Resp Denies cough and Denies dyspnea GI Reports no additional complaints Musc Reports no additional complaints Skin/Breast Denies rash and Denies unusual bruising Neuro Reports Normal hearing present Psych Reports no additional complaints Endo Reports no additional complaints Laci/Lymph Reports no additional complaints Aller/Immun Reports no additional complaints Physical Exam Const General: healthy appearing, no acute distress and well developed Orientation/consciousness: patient oriented x3 HEENT Head: Yes normocephalic and Yes atraumatic Eyes Conjunctivae: conjunctivae normal Neck Neck: Yes normal visual inspection Chest Chest palpation & inspection: normal inspection of the chest Resp Effort & Inspection: normal respiratory effort Cardio Rate: regular rate GI Inspection: Yes normal to inspection Palpation (GI): Soft to palpation Other: Both the testicles were normal, there was tenderness in the right groin Penis: normal penis Skin General skin exam: no rashes or lesions noted Neuro General: patient oriented x3 Cranial nerves: Yes Normal hearing present Extrem General: No pedal edema Psych Appearance: grossly normal Affect: normal affect Results AMB Urinalysis, Automated UA Leukoctes 15 January/uL Last Edit by JASON Beasley on 09/22/23 10:47 UA Nitrite Negative Last Edit by JASON Beasley on 09/22/23 10:47 UA Urobilinogen 0.2 mg/dL Last Edit by Veena Andres Jimy on 09/22/23 10:4 7 UA Protein 0 mg/dL Last Edit by Veena Andres [facility] on 09/22/23 10:47 UA pH 6.0 Last Edit by Veena Andres [facility] on 09/22/23 10:47 UA Blood 200 Ron/uL Last Edit by Veena Andres [facility] on 09/22/23 10:47 3+ Veena Andres 09/22/23 10:47 UA Specific [place] 1.020 Last Edit by JASON Beasley on 09/22/23 10: 47 UA Ketone Negative Last Edit by Veena Andres [facility] on 09/22/23 10:47 UA Bilirubin 0 mg/dL Last Edit by Veena Andres Jimy on 09/22/23 10:47 UA Glucose 0 mg/dL Last Edit by Veena Andres [facility] on 09/22/23 10:47 Results Reviewed Results Reviewed: Laboratory Last Values Urine pH (Auto) 6.0 09/22/23 10:42 Specific [place] (Auto) 1.020 09/22/23 10:42 Urine Protein (Auto) 0 mg/dL 09/22/23 10:42 Glucose (UA)(Auto) 0 mg/dL 09/22/23 10:42 Urine Ketones (Auto) Negative 09/22/23 10:42 Urine Blood (Auto) 200 Ron/uL 09/22/23 10:42 Urine Nitrite (Auto) Negative 09/22/23 10:42 Urine Bilirubin (Auto) 0 mg/dL 09/22/23 10:42 Urine Urobilinogen (Auto) 0.2 mg/dL 09/22/23 10:42 Leukocyte Esterase (Auto) 15 January/uL 09/22/23 10:42 Date of Service: 09/04/23 EXAMINATION: MR ABDOMEN WITHOUT AND WITH CONTRAST CLINICAL INFORMATION: History of cirrhosis. Treated HCV. Abnormal prior imaging. COMPARISON: 12/15/2022 and 10/12/2022 FINDINGS: LUNG BASES: The visualized lung bases are unremarkable. LIVER, GALLBLADDER, AND BILIARY TREE: Hypertrophy of the left hepatic lobe with subtle micronodular contour consistent with cirrhosis. Hepatic steatosis. Relatively hypoenhancing focus in segment 4A shows fat suppression and loss of signal on out of phase imaging. This correlates with the recent abdominal CT. No suspicious features such as arterial phase hyperenhancement or washout characteristics. No biliary ductal dilatation is present. The gallbladder remains hydropic without obvious pericholecystic inflammatory changes. PANCREAS: No ductal dilatation. SPLEEN: Not enlarged. ADRENAL GLANDS: No adrenal mass. KIDNEYS AND URETERS: The kidneys are normal in size, shape, and enhance symmetrically. No hydronephrosis. No perinephric stranding. GASTROINTESTINAL TRACT: No bowel obstruction. LYMPH NODES: No bulky abdominal lymphadenopathy. VASCULAR: Normal caliber abdominal aorta. IMPRESSION: Relatively amorphous area of fat infiltration within segment 4A corresponding to the recent CT. No suspicious features. Short interval follow-up to assess stability. Hydropic gallbladder. This appears to be a chronic finding based on prior imaging. Assessment & Plan Assessment & Plan (1) Screening PSA (prostate specific antigen): Code(s): Z12.5 - Encounter for screening for malignant neoplasm of prostate (2) Microscopic hematuria: Code(s): R31.29 - Other microscopic hematuria (3) Kidney stone: Code(s): N20.0 - Calculus of kidney (4) History of nicotine use: Code(s): Z87.891 - Personal history of nicotine dependence (5) Groin strain: Code(s): S76.219A - Strain of adductor muscle, fascia and tendon of unspecified thigh, initial encounter Plan Repeat urine cytology was ordered. PSA screening test was ordered. Follow-up with Inna Cramer in one year. Orders: Orders AMB Urinalysis Automated Today Z13.9 - Encounter for screening, unspecified Urine Cytology Today R31.29 - Other microscopic hematuria Medications: Refilled tamsulosin 0.4 mg PO DAILY 90 days 90 caps 3RF Patient Instructions: The patient had an opportunity to ask questions regarding treatment plan. All questions were answered. Imaging, Laboratory studies and physical exam results were discussed and reviewed in detail. No major barriers to understanding were identified. The patient expressed understanding and agreement with the above treatment plan. The patient is aware they should contact our office by phone for worsening of their current condition or the appearance of new symptoms. Compliance is encouraged with any medications and followup testing that is ordered. It is a privilege to be allowed the opportunity to participate in the urologic care of your patient. If you have any questions or concerns regarding treatment for the above conditions please do not hesitate to contact me. The office telephone contact is [phone]. This note is constructed in part using voice recognition software. While every effort has been made to ensure accuracy landscape supervisor errors may have been included. Yours sincerely, Paris Chen MD Coding Level of Care Code Est Pt Level 4 (81384) Diagnoses Screening PSA (prostate specific antigen) Z12.5 Microscopic hematuria R31.29 Kidney stone N20.0 History of nicotine use Z87.891 Groin strain S76.219A
== END 2023-09-22 11:03 | disposition home or self-care (01) ==
PROVIDERS: PCP Nurse Practitioner Primary Care; Visit Provider Urology
DX: Z12.5 Encounter for screening for malignant neoplasm of prostate (principal); R31.29 Other microscopic hematuria; N20.0 Calculus of kidney; Z87.891 Personal history of nicotine dependence; S76.219A Strain of adductor muscle, fascia and tendon of unspecified thigh, initial encounter; Z13.9 Encounter for screening, unspecified
CPT/HCPCS: 99214

== ENCOUNTER 2024-01-24 08:11 | Outpatient (REF) | payer MEDICAID, SELFPAY ==
[2024-01-24 11:20] LABS: MANUAL DIFF FLAG NO
[2024-01-24 11:49] LABS: Basophils Percent Auto 0.5 % (0-2); Eosinophils Absolute Auto 0.1 X10*3/uL (0.0-0.4); Eosinophils Percent Auto 1.8 % (0-4); Hematocrit 42.5 % (42.0-52.0); Hemoglobin 14.4 g/dl (14.0-18.0); Imm Gran Abs Auto 0.02 X10*3/uL (0.00-0.03); Imm Gran Pct Auto 0.3 % (0.0-0.4); Lymphocytes Absolute Auto 2.1 X10*3/uL (1.2-4.9); Lymphocytes Percent Auto 27.1 % (20-40); Mean Corpuscular HGB Conc 33.9 g/dl (31.0-36.0); Mean Corpuscular Hemoglobin 29.4 pg (27.0-33.0); Mean Corpuscular Volume 86.9 fL (80.0-98.0); Mean Platelet Volume 10.9 fL (9.4-12.4); Monocytes Absolute Auto 0.5 X10*3/uL (0.1-1.2); Monocytes Percent Auto 6.8 % (2-11); Neutrophils Absolute Auto 4.9 x10*3/uL (2.0-8.3); Neutrophils Percent Auto 63.5 % (45-73); Platelet Count 217 X10*3/uL (160-400); Red Blood Count 4.89 X10*6/uL (4.60-5.80); Red Cell Distribution Width 12.9 % (11.0-16.0); White Blood Count 7.7 X10*3/uL (4.8-10.8)
[2024-01-24 12:35] LABS: Anion Gap 14 (12-20); Blood Urea Nitrogen 8 mg/dL (9-16); Calcium 9.4 mg/dL (8.4-10.2); Carbon Dioxide 25 mmol/L (22-29); Chloride 101 mmol/L (96-108); Cholesterol 120 mg/dL (<200); Estimated Glomerular Filt Rate > 60; Glucose Random 112 mg/dL (60-115); HDL Cholesterol 57 mg/dL (>40); LDL Cholesterol Calculated 50 mg/dL (<100); Potassium 3.9 mmol/L (3.3-5.1); Sodium 136 mmol/L (135-145); TSH reflex Free T4 0.93 uIU/mL (0.32-4.0); Triglycerides 68 mg/dL (<150)
== END 2024-01-24 08:12 | disposition home or self-care (01) ==
LOC: HO.HHCL 08:11
PROVIDERS: Visit Provider Nurse Practitioner Primary Care
DX: E03.9 Hypothyroidism, unspecified (principal); R21 Rash and other nonspecific skin eruption
CPT/HCPCS: 36415; 80048; 80061; 84443; 85025

== ENCOUNTER 2024-01-25 12:31 | Outpatient (REF) | payer MEDICAID, SELFPAY ==
[2024-01-25 14:20] LABS: Creatinine Urine 164.28 mg/dL; Microalbum/Creatinine Ratio Ur 9.1 ug/mg cr (<30)
== END 2024-01-25 12:32 | disposition home or self-care (01) ==
LOC: HO.LNP 12:31
PROVIDERS: Visit Provider Nurse Practitioner Primary Care
DX: I10 Essential (primary) hypertension (principal)
CPT/HCPCS: 82043; 82570

== ENCOUNTER 2024-05-13 09:24 | Outpatient (REF) | payer MEDICAID, SELFPAY ==
--- NOTE | ~2024-05-13 | MR_ITS ---
EXAMINATION: MR ABDOMEN WITHOUT AND WITH CONTRAST CLINICAL INFORMATION: Cirrhosis. Follow-up liver lesion. COMPARISON: Abdominal MRI 09/04/2023. TECHNIQUE: MR abdomen was performed without and with use of 8 mL intravenous Gadavist gadolinium contrast. Postcontrast images are performed in multiphase dynamic sequences. Imaging was performed in 3 planes. FINDINGS: LUNG BASES: The visualized lung bases are unremarkable. LIVER, GALLBLADDER, AND BILIARY TREE: Hypertrophy of the left hepatic lobe with subtle nodular contour suggestive of cirrhosis. Previously described signal abnormalities within segment 4A of the liver are slightly less apparent in this examination, and are visualized as regions of hypoattenuation on postcontrast images including a stable airport representative more rounded mass-like hypoattenuating observation on portal venous phase 102 image 34. Previously described associated loss of signal in the out of phase dual echo images is not seen in the present examination. No arterially hyperenhancing observations. Redemonstration of hydropic gallbladder. No significant pericholecystic inflammatory changes. No biliary ductal dilatation. PANCREAS: Unremarkable. SPLEEN: Normal. ADRENAL GLANDS: Normal. KIDNEYS AND URETERS: The kidneys are normal in size, shape, and enhance symmetrically. No hydronephrosis. A few subcentimeter simple appearing cortical cysts for which no imaging follow-up is recommended. No perinephric stranding. GASTROINTESTINAL TRACT: No evidence of bowel obstruction or ascites. ABDOMINAL WALL: No significant hernia is appreciated. LYMPH NODES: No lymphadenopathy. VASCULAR: Normal caliber of the abdominal aorta. The main portal vein is patent. OSSEOUS STRUCTURES: No acute or aggressive appearing osseous findings. MR/MR abdomen wo/w con IMPRESSION: Similar to slightly decreased regions of hypoenhancement in segment 4A of the liver. No associated arterial phase hyperenhancement. No associated T2 signal abnormality. These are indeterminate, LR3. Recommend follow-up with MRI in 3-6 months.
[2024-05-13] MEDS: gadobutroL 10 ML VIAL IVPUSH (10:56)
== END 2024-05-13 09:25 | disposition home or self-care (01) ==
LOC: HO.MRI 09:24
PROVIDERS: PCP Nurse Practitioner Primary Care; Visit Provider Nurse Practitioner Primary Care
DX: K74.60 Unspecified cirrhosis of liver (principal)
CPT/HCPCS: 74183; A9585

== ENCOUNTER 2024-12-02 09:01 | Outpatient (REF) | payer MEDICAID, SELFPAY ==
--- OUTSIDE RECORDS SUMMARY | 2024-12-02 13:21 | XMS_ITS | Encounter Summary ---
Author Organization [employer] [facility] Address [address] [place] [address] Care Team Providers Care Applications Sales Representative Name Role Phone Yenny Goldman Primary Care Provider [phone] Reason for Visit * Reason Onset Date Comments Nurse Triage 12/26/2023 Encounter Details Date Type Department Care Team ([facility] st Contact Info) Description 12/26/2023 Telephone [facility] MEDICINE [address] [place], [place] [phone] Yenny Golmdan ANP [address] [place], [place] [phone] Nurse Triage Social History Tobacco Use Types Packs/Day Years Used Date Smoking Tobacco: Former Cigarettes Smokeless Tobacco: Never Housing Stability Answer Date Recorded What is your housing situation today? I have jef tejeda 08/30/[address] you li ve. Do you have problems with any of the following? None of the above 08/30/2023 Food Insecurity Answer Date Recorded Within the past 12 months, y ou worried that your food would run out before you got money to buy more: Never True 08/30/2023 Within the past 12 months,th e food you bought just didn't last and you didn't have enough money to get more: Never True Transportation Answer Date Recorded In the past 12 months, has l ack of transportation kept you from medical appts, meetings, work or from getting things needed for daily living? No 08/30/2023 Utilities Answer Date Recorded In the past 12 months, has t he electric, gas, oil or water company threatened to shut off services in your home? No 08/30/2023 Sex and Gender Information Value Date Recorded Sex Assigned at Male 09/05/2022 10:17 AM EDT Legal Sex Male 10:17 AM EDT Gender Identity Male 09/05/2022 10:17 AM EDT Sexual Orientation Straight 09/05/2022 10 :17 AM EDT documented as of this encounter Miscellaneous Notes * Telephone Encounter - Brielle De Guzman RN - 12/26/2023 3:48 PM EST Triage call Pt reports has had hernia repair, is still in pain and wants to talk to PCP only. Pt only wants an appt, does not want to elaborate about symptoms wants only to have an appt with PCP. Appt with PRASHANT Goldman 01/09/24 @ 900am Insurance is verified as active prior to booking. Protocol Used: Abdominal Pain - Male (Adult) Protocol-Based Disposition: See in Office or Video Visit within 2 Weeks Positive Triage Question: * Abdominal pain is a chronic symptom (recurrent or ongoing AND lasting > 4 weeks) * All higher-acuity triage questions were negative * Telephone Encounter - Korey Cazares - 12/26/2023 2:05 PM EST Symptom: Abdominal Pain - Male Outcome: Schedule an urgent appointment (within 4 hours) or talk to a nurse or provider soon Reason: Getting worse The caller accepted this outcome Please contact pt @ [phone] documented in this encounter Plan of Treatment Upcoming Encounters Date Type Department Care Team (Late st Contact Info) Description 01/23/2025 10:15 AM EDT Office Visit [facility]INE [address] [place] [address] Yenny Goldman ANP [address] [place] [address] documented as of this encounter Visit Diagnoses Not on filedocumented in this encounter Care Teams Applications Sales Representative Relationship Specialty Start Date End Date Yenny Goldman ANP [address] [place] [address] PCP - General Family Medicine 10/27/20 documented as of this encounter
--- OUTSIDE RECORDS SUMMARY | 2024-12-02 13:21 | XMS_ITS | Encounter Summary ---
Author Organization [employer] [facility] Address [address] [place] [address] Care Team Providers Care Radio Frequency Technician Name Role Phone Yenny Goldman Primary Care Provider [phone] Encounter Details Date Type Department Care Team (Late Contact Info) Description 03/27/2023 Orders Only [facility] PEDS [address] [place] [address] Madiha Krueger LPN Social History Tobacco Use Types Packs/Day Years Used Date Smoking Tobacco: Former Cigarettes Smokeless Tobacco: Never Sex and Gender Information Value Date Recorded Sex Assigned at Male 09/05/2022 10:17 AM EDT Legal Sex Male 10:17 AM EDT Gender Identity Male 09/05/2022 10:17 AM EDT Sexual Orientation Straight 09/05/2022 10 :17 AM EDT COVID-19 Exposure Response Date Recorded In the last 10 days, have yo u been in contact with someone who was confirmed or suspected to have Coronavirus/COVID-19? No / Unsure 03/16/2023 9:03 AM EDT documented as of this encounter Plan of Treatment Upcoming Encounters Date Type Department Care Team (Late st Contact Info) Description 01/23/2025 10:15 AM EDT Office Visit [facility] MEDICINE [address] [place] [address] Yenny Goldman ANP [address] [place] [address] documented as of this encounter Visit Diagnoses Not on filedocumented in this encounter Care Teams Radio Frequency Technician Relationship Specialty Start Date End Date Yenny Goldman ANP [address] [place] [address] PCP - General Family Medicine 10/27/20 documented as of this encounter
--- OUTSIDE RECORDS SUMMARY | 2024-12-02 13:21 | XMS_ITS | Encounter Summary ---
Author Organization [employer] [facility] Address [address] [place] [address] Care Team Providers Care Final Inspector Name Role Phone Yenny Goldman Primary Care Provider [phone] Encounter Details Date Type Department Care Team (Latest Contact Info) Description 09/08/2021 Abstract [facility] CONVERSIONS Dental, Provider, DDS Social History Tobacco Use Types Packs/Day Years Used Date Smoking Tobacco: Never Assessed Sex and Gender Information Value Date Recorded Sex Assigned at Male 09/05/2022 10:17 AM EDT Legal Sex Male 10:17 AM EDT Gender Identity Male 09/05/2022 10:17 AM EDT Sexual Orientation Straight 09/05/2022 10 :17 AM EDT documented as of this encounter Plan of Treatment Upcoming Encounters Date Type Department Care Team (Late st Contact Info) Description 01/23/2025 10:15 AM EDT Office Visit [facility] MEDICINE [address] [place] [address] Yenny Goldman ANP [address] [place] [address] documented as of this encounter Visit Diagnoses Not on filedocumented in this encounter Care Teams Final Inspector Relationship Specialty Start Date End Date Yenny Goldman ANP [address] [place] [phone] PCP - General Family Medicine 10/27/20 documented as of this encounter
--- OUTSIDE RECORDS SUMMARY | 2024-12-02 13:21 | XMS_ITS | Encounter Summary ---
Author Organization [employer] [facility] Address [address] [place] [address] Care Team Providers Care Precipitation Equipment Tender Name Role Phone Yenny Goldman Primary Care Provider [phone] Encounter Details Date Type Department Care Team (Late st Contact Info) Description 11/25/[address] [facility] MEDICINE [address] [place] [phone] Swapna Smith LPN Social History Tobacco Use Types Packs/Day [...] Description 01/23/2025 10:15 AM EDT Office Visit [facility] [address] [place] [address] [phone] Yenny Goldman ANP [address] [place] [address] [phone] documented as of this encounter Procedures Procedure Name Priority Date/Time Associated Diagnosis Comments POCT CREATININE GFR Routine 12/15/2022 9 :40 AM EST CYTOPATH-CELL ENHANCED Routine 11/25/2022 5:32 PM EST documented in this encounter Results * POCT Creatinine GFR (12/15/2022 9:40 AM EST) POCT Creatinine 0.9 0.5 - 1.4 mg/dL [facility] GFR POC 60 [facility] Comment:Chronic Kidney Disea se: Estimated GFR < 60 mL/min/1.87v2Jiygic Kidney Disease: Estimated GFR < 15 mL/min/1.73m2 12/15/2022 9:40 AM EST 12/19/2022 2:22 PM EST Narrative [facility] - 12/19/2022 2:24 PM EST [id number] us [facility] Exter nal Provider LAB POINT OF CARE TEST DOCKED DEVICE ORDERABLES Final Result Performing Organization Address City/State/[facility] Co de Phone Number [facility] [address] [place] [phone] * Cytopath-cell enhanced (11/25/2022 5:32 PM EST) 11/25/2022 5:32 PM EST 11/28/2022 11:00 AM EST Leonila [facility] - 12/01/2022 10:00 PM EST ----- ------- Name: Dinesh Rivas ? Age/Sex: 62/M ? : 1960 Unit#: [id number] ?? Attend Dr: Marva Keith [facility] ?Re11/25/22 ?Status: DEP REF ? Location: HO.LAB ?Disch: ? ----- ------- SPEC : [id number] ?RECD: 11/28/22 ? STATUS: ??SOUT ? REQ NUM: [id number] ? JILLIAN: 11/25/22 ? SUBM DR: Marva Keith CHEMICAL COMPOUNDER HELPER- ? ENTERED: ??11/29/22 ?SP TYPE: Cytology ? OTHR : ? ORDERED: ??Cyto-enhanced ? Diagnosis ?? Urine: ??Few atypical urothelial cells. ? COMMENT: Examination of a monolayer preparation slide shows a single group of atypical ?? but degenerated urothelial cells with increased nuclear:cytoplasmic ratios. ??There is a ?? background of benign squamous cells, acute inflammatory cells, occasional benign ?? urothelial cells, and occasional red blood cells. ?Clinical History Microscopic hematuria ? Material Received ?? Urine ? Gross Description 44 cc cloudy dark yellow fluid ----- ------- Signed (signature on file) Rosa Gan 12/01/222199 ? ----- ------- ? END OF REPORT ? us [facility] External Provider LAB [facility] Final Result [facility] [address] [place] [phone] documented in this encounter Visit Diagnoses Not on filedocumented in this encounter Care Teams Precipitation Equipment Tender Relationship Specialty Start Date End Date Yenny Goldman ANP [address] [place] [phone] PCP - General Family Medicine 10/27/20 documented as of this encounter
--- OUTSIDE RECORDS SUMMARY | 2024-12-02 13:21 | XMS_ITS | Encounter Summary ---
Author Organization [employer] [facility] Address [address] [place] [address] Care Team Providers Care Biofuels Production Associate Name Role Phone Yenny Goldman Primary Care Provider [phone] Reason for Visit * Reason Comments Med Refill Encounter Details Date Type Department Care Team (Late st Contact Info) Description 11/25/2022 Refill [facility] MEDICINE [address] [place] [phone] Yenny Goldman ANP [address] [place] [phone] Erectile dysfunction, unspecified erectile dysfunction type (Primary Dx) Social History Tobacco Use Types Packs/Day Years [...] Description 01/23/2025 10:15 AM EDT Office Visit [facility] MEDICINE [address] [place] [phone] Yenny Goldman ANP [address] [place] [phone] documented as of this encounter Visit Diagnoses Diagnosis Erectile dysfunction, unspecified erectile dysfunction type- Primary documented in this encounter Care Teams Biofuels Production Associate Relationship Specialty Start Date End Date Yenny Goldman ANP [address] [place] [phone] PCP - General Family Medicine 10/27/20 documented as of this encounter
--- OUTSIDE RECORDS SUMMARY | 2024-12-02 13:21 | XMS_ITS | Encounter Summary ---
Author Organization [employer] [facility] Address [address] [place] [address] Care Team Providers Care Public Welfare Director Name Role Phone Yenny Goldman Primary Care Provider [phone] Encounter Details Date Type Department Care Team (Latest Contact Info) Description 09/08/2021 Abstract [facility] CONVERSIONS Dental, Provider, DDS Social History Tobacco [...] Description 01/23/2025 10:15 AM EDT Office Visit [facility] MEDICINE [address] [place] [address] Yenny Goldman ANP [address] [place] [address] documented as of this encounter Visit Diagnoses Not on filedocumented in this encounter Care Teams Public Welfare Director Relationship Specialty Start Date End Date Yenny Goldman ANP [address] [place] [phone] PCP - General Family Medicine 10/27/20 documented as of this encounter
--- OUTSIDE RECORDS SUMMARY | 2024-12-02 13:21 | XMS_ITS | Encounter Summary ---
Author Organization [employer] [facility] Address [address] [place] [address] Care Team Providers Care Election Supervisor Name Role Phone Yenny Goldman Primary Care Provider [phone] Encounter Details Date Type Department Care Team (Latest Contact Info) Description 01/22/2019 Abstract [facility] CONVERSIONS Dental, Provider, DDS Social History Tobacco [...] Description 01/23/2025 10:15 AM EDT Office Visit [facility] MEDICINE [address] [place] [address] Yenny Goldman ANP [address] [place] [address] documented as of this encounter Visit Diagnoses Not on filedocumented in this encounter Care Teams Election Supervisor Relationship Specialty Start Date End Date Yenny Goldman ANP [address] [place] [address] PCP - General Family Medicine 10/27/20 documented as of this encounter
--- OUTSIDE RECORDS SUMMARY | 2024-12-02 13:22 | XMS_ITS | Encounter Summary ---
Author Organization [employer] [facility] Address [address] [place] [address] Care Team Providers Care Talent Assistant Name Role Phone Yenny Goldman Primary Care Provider [phone] Encounter Details Date Type Department Care Team (Late st Contact Info) Description 03/28/2023 Telephone [facility] ADULT DENTAL [address] [place], [place] [phone] Angela Johnson DDS [address] [place], [place] [phone] Social History Tobacco Use Types Packs/Day Years [...] encounter Miscellaneous Notes * Telephone Encounter - Angela Johnson DDS - 03/29/2023 10:37 AM EDT Please let him know that the case is back to please come to the office for delivery. Thanks * Telephone Encounter - Kacy [place] - 03/28/2023 12:47 PM EDT Patient is milla greenwood for confirm if case is back in from lab? documented in this encounter Plan of Treatment Upcoming Encounters Date Type Department Care Team (Late st Contact Info) Description 01/23/2025 10:15 AM EDT Office Visit [facility] [address] [place] [address] Yenny Goldman ANP [address] [place] [address] documented as of this encounter Visit Diagnoses Not on filedocumented in this encounter Care Teams Talent Assistant Relationship Specialty Start Date End Date Yenny Goldman ANP [address] [place] [id number] PCP - General Family Medicine 10/27/20 documented as of this encounter
--- OUTSIDE RECORDS SUMMARY | 2024-12-02 13:22 | XMS_ITS | Encounter Summary ---
Author Organization [email or web address] [facility] Address [address] [place] [address] Care Team Providers Care Charge Accounts Audit Clerk Name Role Phone Yenny Goldman Primary Care Provider [phone] Reason for Visit * Reason Comments Med Refill Encounter Details Date Type Department Care Team (Late st Contact Info) Description 10/09/2024 Refill [facility] [address] [place], [place] [phone] Yenny Goldman ANP [address] [place], [place] [phone] Erectile dysfunction, unspecified erectile dysfunction type Social History Tobacco Use Types Packs/Day Years Used Date Smoking Tobacco: Former Cigarettes Smokeless Tobacco: Never Depression Answer Date Recorded Patient Health Questionnaire-9 Score 21 01/09/2024 Patient Health Questionnaire-9 Score 21 01/09/2024 Last PHQ-9: Questionnaire Data Not on file 0 01/09/2024 Housing Stability Answer Date Recorded What is [...] the past 12 months, has t he [employer], gas, oil or water company threatened to shut off services in your home? No 08/30/2023 Depression Answer Date Recorded Patient Health Questionnaire-2 Score 6 01/09/2024 Sex and Gender Information Value Date Recorded Sex Assigned at Male 09/05/2022 10:17 AM EDT Legal Sex Male 10:17 AM EDT Gender Identity Male 09/05/2022 10:17 AM EDT Sexual Orientation Straight 09/05/2022 10 :17 AM EDT documented as of this encounter Plan of Treatment Upcoming Encounters Date Type Department Care Team (Late st Contact Info) Description 01/23/2025 10:15 AM EDT Office Visit [facility] [address] [place] [phone] Yenny Goldman ANP [address] [place] [phone] documented as of this encounter Visit Diagnoses Diagnosis Erectile dysfunction, unspecified erectile dysfunction type documented in this encounter Additional Health Concerns Assessment Noted Time PHQ-9 Depression Total Score: 21 024 11:53 AM EST documented as of this encounter Care Teams Charge Accounts Audit Clerk Relationship Specialty Start Date End Date Yenny Goldman ANP [address] [place] [id number] PCP - General Family Medicine 10/27/20 documented as of this encounter
--- OUTSIDE RECORDS SUMMARY | 2024-12-02 13:22 | XMS_ITS | Encounter Summary ---
Author Organization [employer] [facility] Address [address] [place] [address] Care Team Providers Care Otorhinolaryngologist Name Role Phone Yenny Goldman Primary Care Provider [phone] Reason for Visit * Reason Onset Date Comments Med Refill 11/21/2024 Encounter Details Date Type Department Care Team ([facility] st Contact Info) Description 11/21/2024 Telephone [facility]INE [address] [place], [place] [phone] Yenny Goldman ANP [address] [place], [place] [phone] Med Refill Social History Tobacco Use Types Packs/Day Years Used Date Smoking Tobacco: Former Cigarettes Smokeless Tobacco: Never Depression Answer Date Recorded Patient Health Questionnaire-9 Score 21 01/09/2024 Patient Health Questionnaire-9 Score 21 01/09/2024 Last PHQ-9: Questionnaire Data Not on file 0 01/09/2024 Housing Stability Answer Date Recorded What is your housing situation today? I have jef tejeda 10/18/[address] you li ve. Do you have problems with any of the following? Water leaks 10/18/2024 Food Insecurity Answer Date Recorded Within the past 12 months, y ou worried that your food would run out before you got money to buy more: Sometimes True 2023 Within the past 12 months,th e food you bought just didn't last and you didn't have enough money to get more: Sometimes True 10/18/2024 Transportation Answer Date Recorded In the past 12 months, has l ack of transportation kept you from medical appts, meetings, work or from getting things needed for daily living? Yes, it has kept me from medical appointments or getting medications. 10/18/2024 Utilities Answer Date Recorded In the past 12 months, has t he electric, [employer], oil or water company threatened to shut off services in your home? No 10/18/2024 Depression Answer Date Recorded Patient Health Questionnaire-2 Score 6 01/09/2024 Internet Access Answer Date Recorded Internet Access Q1 No 10/18/2024 Internet Access Q2 I do not want or need it 10/06 Sex and Gender Information Value Date Recorded Sex Assigned at Male 09/05/2022 10:17 AM EDT Legal Sex Male 10:17 AM EDT Gender Identity Male 09/05/2022 10:17 AM EDT Sexual Orientation Straight 09/05/2022 10 :17 AM EDT documented as of this encounter Miscellaneous Notes * Telephone Encounter - Madiha Krueger LPN - 2024 9:38 AM EST Medication not pended please review script was sent on 10/16/24 #20 with 1 refill. * Telephone Encounter - Joesph Payton - 2024 9:22 AM EST TC from pt has no refills for viagra at pharmacy . [employer] contacted pharmacy they stated he needs a new script , can be filled with new script due to patient paying rosas . * Telephone Encounter - Madiha Krueger LPN - 11/21/2024 4:23 PM EST Medication to soon for refill. * Telephone Encounter - Aleshia Lutz - 11/21/2024 4:07 PM EST TC from pt requesting medication refill. Medications needing refill : sildenafil (Viagra) 100 MG tablet To be sent to: [facility] documented in this encounter Plan of Treatment Upcoming Encounters Date Type Department Care Team (Late st Contact Info) Description 01/23/2025 10:15 AM EDT Office Visit [facility] [address] [place] [address] Yenny Goldman ANP [address] [place] [address] documented as of this encounter Visit Diagnoses Diagnosis Erectile dysfunction, unspecified erectile dysfunction type- Primary documented in this encounter Additional Health Concerns Assessment Noted Time PHQ-9 Depression Total Score: 21 024 11:53 AM EST documented as of this encounter Care Teams Otorhinolaryngologist Relationship Specialty Start Date End Date Yenny Goldman ANP [address] [place] [address] PCP - General Family Medicine 10/27/20 documented as of this encounter
--- OUTSIDE RECORDS SUMMARY | 2024-12-02 13:22 | XMS_ITS | Encounter Summary ---
Author Organization [employer] [facility] Address [address] [place] [address] Care Team Providers Care Counter Waitress/Waiter Name Role Phone Yenny Goldman Primary Care Provider [phone] Reason for Visit * Reason Comments Med Refill Encounter Details Date Type Department Care Team (Late st Contact Info) Description 11/20/2024 Refill [facility] [address] [place], [place] [phone] Yenny Goldman ANP [address] [place], [place] [phone] Erectile dysfunction, unspecified erectile dysfunction type Social History Tobacco Use Types Packs/Day Years Used Date Smoking Tobacco: Former Cigarettes Smokeless Tobacco: Never Depression Answer Date Recorded Patient Health Questionnaire-9 Score 21 01/09/2024 Patient Health Questionnaire-9 Score 21 01/09/2024 Last PHQ-9: Questionnaire Data Not on file 0 01/09/2024 Housing Stability Answer Date Recorded What is your housing situation today? I have jefsanjuana tejeda 10/18/[address] you [...] 10:15 AM EDT Office Visit [facility]INE [address] [place] [address] Yenny Goldman ANP [address] [place] [address] documented as of this encounter Visit Diagnoses Diagnosis Erectile dysfunction, unspecified erectile dysfunction type documented in this encounter Additional Health Concerns Assessment Noted Time PHQ-9 Depression Total Score: 21 024 11:53 AM EST documented as of this encounter Care Teams Counter Waitress/Waiter Relationship Specialty Start Date End Date Yenny Goldman ANP [address] [place] [address] PCP - General Family Medicine 10/27/20 documented as of this encounter
--- OUTSIDE RECORDS SUMMARY | 2024-12-02 13:22 | XMS_ITS | Encounter Summary ---
Author Organization [employer] [facility] Address [address] [place] [address] Care Team Providers Care Engineering Program Manager Name Role Phone Yenny Goldman Primary Care Provider [phone] Reason for Visit * Reason Comments Med Refill Encounter Details Date Type Department Care Team (Late st Contact Info) Description 2024 Refill [facility] [address] [place], [place] [phone] Yenny Goldman ANP [address] [place], [place] [phone] Erectile dysfunction, unspecified erectile dysfunction type Social [...] 10:15 AM EDT Office Visit [facility] [address] [place] [address] Yenny Goldman ANP [address] [place] [address] documented as of this encounter Visit Diagnoses Diagnosis Erectile dysfunction, unspecified erectile dysfunction type documented in this encounter Additional Health Concerns Assessment Noted Time PHQ-9 Depression Total Score: 21 024 11:53 AM EST documented as of this encounter Care Teams Engineering Program Manager Relationship Specialty Start Date End Date Yenny Goldman ANP [address] [place] [phone] PCP - General Family Medicine 10/27/20 documented as of this encounter
--- OUTSIDE RECORDS SUMMARY | 2024-12-02 13:22 | XMS_ITS | Encounter Summary ---
Author Organization [employer] [facility] Address [address] [place] [address] Care Team Providers Care Transmission Rebuilder Name Role Phone Yenny Goldman SWETA Primary Care Provider [phone] Reason for Visit * Reason Onset Date Comments Appointment 03/08/2023 Encounter Details Date Type Department Care Team (Late st Contact Info) Description 03/08/2023 Telephone C ADULT DENTAL [address] [place], [place] [phone] Angela Johnson DDS [address] [place], [place] [phone] Appointment Social History Tobacco Use Types Packs/Day Years [...] suspected to have Coronavirus/COVID-19? No / Unsure 03/10/2023 9:07 AM EDT documented as of this encounter Miscellaneous Notes * Telephone Encounter - Kacy [place] - 03/22/2023 10:43 AM EDT Patient is calling in to confirm if partials are back from lab and ready for delivery DR * Telephone Encounter - Kacy [place] - 03/08/2023 3:19 PM EDT Patient came in today and stated that as soon as he left the partial broke again in the same spot that it was repaired. Tim offered for patient to come back 03/09 tomorrow at 2pm but the patient stated that would be too late. He needs an stereo equipment repairer appt. Advised by Tim to reach out to you asto when patient an be fit into schedule documented in this encounter Plan of Treatment Upcoming Encounters Date Type Department Care Team (Late st Contact Info) Description 01/23/2025 10:15 AM EDT Office Visit [facility] [address] [place] [address] Yenny Goldman ANP [address] [place] [address] documented as of this encounter Visit Diagnoses Not on filedocumented in this encounter Care Teams Transmission Rebuilder Relationship Specialty Start Date End Date Yenny Goldman ANP [address] [place] [address] PCP - General Family Medicine 10/27/20 documented as of this encounter
--- OUTSIDE RECORDS SUMMARY | 2024-12-02 13:22 | XMS_ITS | Clinical Summary ---
Author Organization [employer] Address [address] [facility] [address] [place] [address] Care Team Providers Care Electrician'S Helper Name Role Phone Yenny Goldman SWETA Primary Care Provider [phone] Allergies Active Allergy Reactions Criticality Noted Date Comments Ibuprofen Rash Low 11/29/2022 Medications tamsulosin (Flomax) 0.4 MG 24 hr capsule TAKE 1 CAPSULE BY MOUTH DAILY 30 MINUTES AFTER THE SAME MEAL EVERY DAY. 11/25/19 23 Active clotrimazole (Lotrimin) 1 % creamIndications: Tinea pedis of both feet APPLY TOPICALLY TO CLEAN DRY SKIN TWICE DAILY. IF NOT BETTER IN 2 WEEKS, CALL THE CLINIC 30 g 1 01/11/20 23 Active betamethasone valerate (Valisone) 0.1 % ointmentIndicatio ns:Rash Apply topically if needed in the morning and at bedtime for rash. For up to 2 weeks 45 g 07/13/20 23 Active rosuvastatin (Crestor) 5 MG tabletIndications :Dyslipidemia Take 1 tablet (5 mg) by mouth Once per day. 90 tablet 3 05/28/20 24 Active levothyroxine (Synthroid, Levoxyl) 75 MCG tabletIndications :Acquired hypothyroidism TAKE 1 TABLET BY MOUTH EVERY DAY ON AN EMPTY STOMACH 90 tablet 1 06/17/20 24 Active lisinopril-hydroC HLOROthiazide 10-12.5 MG tabletIndications :Essential hypertension TAKE 1 TABLET BY MOUTH EVERY DAY 90 tablet 1 06/17/20 24 Active hydrOXYzine pamoate (Vistaril) 25 MG capsuleIndication s:Difficulty sleeping TAKE 3 CAPSULES BY MOUTH EVERY DAY AT BEDTIME NEEDED FOR SLEEP 90 capsule 2 10/08/20 24 Active sildenafil (Viagra) 100 MG tabletIndications :Erectile dysfunction, unspecified erectile dysfunction type TAKE 1 TABLET 1 HOUR BEFORE SEXUAL RELATIONS ONCE DAILY NEEDED. 20 tablet 1 11/22/19 25 Active sildenafil (Viagra) 100 MG tabletIndications :Erectile dysfunction, unspecified erectile dysfunction type TAKE 1 TABLET 1 HOUR BEFORE SEXUAL RELATIONS ONCE DAILY NEEDED. 20 tablet 1 10/16/20 24 2024 Discontinued(R eorder (will not trigger notification to Pharmacy)) Active Problems Problem Noted Date Diagnosed Date Obstructive sleep apnea syndrome 05/28/2024 Overview (05/28/2024): Images from the original note were not included. willing to re-trial APAP 5-20cm. Sleep study 06/23/22 below. Healthcare maintenance 05/28/2024 Overview (05/28/2024): Eye exam: Had eye exam at [address] [place] [address] Dr Cox 2021, wears contacts Dental: self refer Colon ca screening (45+): cologuard negative 2021 DEXA (F 65+, M 70+; with risk factors, earlier): not yet due Lung ca screening (50+ smoking, 20 PYH, quit in last 15yrs): quit 2002 AAA screening (M 65-75 ever smoked; Anyone w/ +fam h/o AAA): not yet due PSA (55-69 w/ shared decision making; earlier w/ risk factors): has been ordered by urology IZs: Declines shingrix, will cont to recommend. Declines RSV. Erectile dysfunction 03/02/2023 History of nicotine use 03/02/2023 Insomnia 03/02/2023 Overview (05/28/2024): Hydroxyzine up to 75mg bedtime as needed Kidney stone 03/02/2023 Microscopic hematuria 03/02/2023 Screening PSA (prostate specific antigen) 2022 Snoring 03/02/2023 Syncope 03/02/2023 Witnessed apneic spells 03/02/2023 Umbilical hernia 11/29/2022 BPH (benign prostatic hyperplasia) 06/15/2020 Neoplasm of liver 01/31/2018 Chronic hepatitis C 06/30/2017 Cirrhosis of liver 06/30/2017 Hepatitis B antibody positive 06/30/2017 Acquired hypothyroidism 03/01/2016 Chronic back pain 03/01/2016 Essential hypertension 03/01/2016 Overview (05/28/2024): Lisinopril-hydrochlorothiazide 10-12.5mg At/near goal today, </= 130/80. Continue to encourage low salt diet, regular exercise, home BP monitoring, compliance with medications. Call clinic if BP is frequently >150/90 Go to ED/call 911 if > 170/100 and having sx such as WAGNER, visual changes, chest pain, SOB Last renal function: Lab Results Component Value Date GLUCOSE 112 01/24/2024 NA 136 01/24/2024 K 3.9 01/24/2024 CO2 25 01/24/2024 CL 101 01/24/2024 BUN 8 (L) 01/24/2024 CREATININE 0.90 01/24/2024 EGFR >60 01/24/2024 Lab Results Component Value Date MICROALBCREA 14 04/07/2022 Lab Results Component Value Date MICROALBCREU 9.1 01/25/2024 Gastroesophageal reflux disease 03/01/2016 Encounters Date Type Department Care Team Description 2024 Refill [facility] [address] [place] [id number] Yenny Goldman ANP Erectile dysfunction, unspecified erectile dysfunction type 11/21/2024 Telephone [facility] [address] [place] [address] Yenny Goldman ANP Med Refill 11/20/2024 Refill [facility] [address] [place] [phone] Yenny Goldman ANP Erectile dysfunction, unspecified erectile dysfunction type 10/28/2024 Telephone [facility] [address] [place] [phone] Anastasia Turner MA chart prep 10/18/2024 Patient Outreach [address] [address] Yenny Goldman ANP Care Coordination (CHW outreach for SDOH PT-1 and food need- LVM ) 10/18/2024 Patient Outreach [address] [address] Yenny Goldman ANP Pre-visit Planning (SDOH Screening positive and Tobacco screening negative) 10/17/2024 Telephone [facility] [address] [place] [address] Bridget Arroyo, FRIEDA 10/16/2024 Refill [facility] [address] [place] [address] Yenny Goldman ANP Erectile dysfunction, unspecified erectile dysfunction type 10/09/2024 Refill [facility] [address] [place] [address] Yenny Goldman ANP Erectile dysfunction, unspecified erectile dysfunction type 10/07/2024 Refill [facility] [address] [place] [address] Yenny Goldman ANP Difficulty sleeping 09/06/2024 Telephone [facility] [address] [place] [address] Jennifer Woods RN Results; Lab Orders 09/04/2024 Orders Only [facility] [address] [place] [phone] Yenny Goldman ANP Cirrhosis of liver without ascites, unspecified hepatic cirrhosis type (CMS/HCC) (Primary Dx); Liver lesion; Abnormal CT of liver from Last 3 Months Immunizations Name Administration Dates Next Due Moderna Covid-19 Vaccine 12+ 03/25/2021,02/26/20 21 Pneumococcal Polysaccharide PPSV23 11/10/2020 Tdap 09/07/2016 Social History Tobacco Use Types Packs/Day Years Used Date Smoking Tobacco: Former Cigarettes Smokeless Tobacco: Never Tobacco Cessation:Counseling Given: Not Answered Depression Answer Date Recorded Patient Health Questionnaire-9 [...] Orientation Straight 09/05/2022 10 :17 AM EDT Last Filed Vital Signs Vital Sign Reading Time Taken Comments Blood Pressure 133/83 05/28/2024 9:08 AM EDT Pulse 88 05/28/2024 9:08 AM EDT Temperature 37.2 ??C (98.9 ??F) 05/28/2024 9:08 AM ED T Respiratory Rate 18 05/28/2024 9:08 AM EDT Oxygen Saturation 99% 05/28/2024 9:08 AM EDT Inhaled Oxygen Concentration - - Weight 81.7 kg (180 lb 3.2 oz) 05/28/2024 9:08 A M EDT Height 154.9 cm (5' 1 ) 05/28/2024 9:08 AM EDT Body Mass Index 34.05 05/28/2024 9:08 AM EDT Plan of Treatment Upcoming Encounters Date Type Department Care Team (Late st Contact Info) Description 01/23/2025 10:15 AM EDT Office Visit [facility] [address] [place], [place] [phone] Yenny Goldman ANP [address] [place] [address] Health Maintenance Due Date Last Done Comments CT Colonography 1961 Colonoscopy 1961 Dental Oral Exam 1961 Dental Prophylaxis 1961 Dental X-Ray: Bitewings 1961 Dental X-Ray: Full Mouth 1961 FIT 1961 FOBT 1961 Sigmoidoscopy 1961 Hepatitis A Vaccines (1 of 2 - Risk 2-dose series) 1980 Zoster Vaccines (1 of 2) 2011 Hepatitis B Vaccines (1 of 3 - Risk 3-dose series) 2021 RSV Patients and Patients Aged 60 years or older (1 - Risk 60-74 years 1-dose series) 2021 COVID-19 Vaccine (3 - 2023-2 5 season) 2024 03/25/2021, 02/25/2021 Influenza Vaccine (#1) 2024 Depression Monitoring (PHQ-9) 07/11/2024, 01/09/2024 Alcohol/Substance Use Screening 01/08/2025 01/09/2024 Depression Screening 01/08/2025 01/09/2024, 01/09/2024 Colorectal Cancer Screening 04/14/2025 FIT DNA/Cologuard 04/14/2025 04/14/2022 Tobacco Screening 05/28/2025 05/28/2024 SDOH Screening 10/18/2025 10/18/2024 DTaP/Tdap/Td Vaccines (2 - T d or Tdap) 09/07/2026 09/07/2016 Lipid Panel 01/23/2029 01/24/2024, 04/07/2022 Pneumococcal Vaccine: Pediatrics (0 to 5 Years) and At-Risk Patients (6 to 64 Years) Aged Out 11/10/2020 No longer eligible b ased on patient's age to complete this topic HIV Screening Completed 04/07/2022 HIB Vaccines Aged Out No longer eligi ble based on patient's age to complete this topic HPV Vaccines Aged Out No longer eligi ble based on patient's age to complete this topic IPV Vaccines Aged Out No longer eligi ble based on patient's age to complete this topic Meningococcal Vaccine Aged Out No ana paula rodolfo eligible based on patient's age to complete this topic RSV under 20 months Aged Out No longe r eligible based on patient's age to complete this topic Rotavirus Vaccines Aged Out No longer eligible based on patient's age to complete this topic Procedures Procedure Name Priority Date/Time Associated Diagnosis Comments LIPID PANEL, STANDARD Routine 01/24/2024 8:16 AM EDT HIV 1/2 ANTIGEN/ANTIBODY, FOURTH GENERATION W/RFL Routine 04/07/2022 10:36 AM EDT from Last 3 Months or Most Recently Relevant to Health Maintenance Results * Lipid Panel, Standard (01/24/2024 8:16 AM EDT) Triglycerides 68 <150 mg/dL [facility] Comment:Desirable Triglyceri de: less than 150 mg/dLBorderline High Triglyceride 150-199 mg/dLHigh Triglyceride: 200-499 mg/dLVery High Triglyceride: greater than or equal to 5OO mg/dL Cholesterol 120 <200 mg/dL [facility] Comment:Desirable Cholestero l: less than 200 mg/dLBorderline High Cholesterol: 200-239 mg/dLHigh Cholesterol: greater than 239 mg/dL LDL Cholesterol Calculated 50 <100 mg/dL [facility] Comment:Desirable LDL: less than 100 mg/dLNear Optimal/Above Optimal LDL: 110- 129 mg/dLBorderline High LDL: 130-159 mg/dLHigh LDL: 160-189 mg/dLVery High LDL: greater than or equal to 190 mg/dL HDL Cholesterol 57 >40 mg/dL [facility] Comment:Desirable HDL: great er than 40 mg/dL Note: This HDL assay may give artificially low results in patients with liver disease. 01/24/2024 8:16 AM EDT 01/24/2024 11:11 AM EDT Yenny Goldman [facility] BLOOD ORDERABLES Final Resul t [facility] [address] [place] [address] [phone] * HIV 1/2 ANTIGEN/ANTIBODY,FOURTH GENERATION W/RFL (04/07/2022 10:36 AM EDT) HIV-1/2 ANTIGEN AND ANTIBODIES, 4TH GENERATION W/ REFLEX NON-REACT JAKOB NON-REACT JAKOB [facility] Comment: HIV-1 antigen and HIV-1/HIV-2 antibodies were not detected. There is no laboratory evidence of HIV infection. ?? PLEASE NOTE: This information has been disclosed to you from records whose confidentiality may be protected by state law. ??If your state requires such protection, then the state law prohibits you from making any further disclosure of the information without the specific written consent of the person to whom it pertains, or as otherwise permitted by law. A general authorization for the release of medical or other information is NOT sufficient for this purpose. ? For additional information please refer to http://education.[employer]/faq/BQL993 (This link is being provided for informational/ educational purposes only.) ? The performance of this assay has not been clinically validated in patients less than 2 years old. ?? 04/07/2022 10:3 6 AM EDT [facility] BLOOD ORDERABLES Final Resul t [facility] [address] from Last 3 Months or Most Recently Relevant to Health Maintenance Insurance [facility] C[place] STAND ADULT Care Teams Electrician'S Helper Relationship Specialty Start Date End Date Yenny Goldman ANP [address] [place] [address] [place] [address] PCP - General Family Medicine 10/27/20
--- OUTSIDE RECORDS SUMMARY | 2024-12-02 13:22 | XMS_ITS | Encounter Summary ---
Author Organization [employer] [facility] Address [address] 7[address] [place] [address] Care Team Providers Care Watch Repair Person Name Role Phone Yenny Goldman Primary Care Provider [phone] Reason for Visit * Reason Comments Med Refill Encounter Details Date Type Department Care Team (Late st Contact Info) Description 04/10/2024 Refill [facility] [address] [place], [place] [phone] Yenny Goldman ANP [address] [place], [place] [phone] Erectile dysfunction, unspecified erectile dysfunction type Social [...] the past 12 months, has t he [employer], gas, oil or water company threatened to [...] Description 01/23/2025 10:15 AM EDT Office Visit [facility] [address] [place] [phone] Yenny Goldman ANP [address] [place] [phone] documented as of this encounter Visit Diagnoses Diagnosis Erectile dysfunction, unspecified erectile dysfunction type documented in this encounter Additional Health Concerns Assessment Noted Time PHQ-9 Depression Total Score: 21 024 11:53 AM EST documented as of this encounter Care Teams Watch Repair Person Relationship Specialty Start Date End Date Yenny Goldman ANP [address] [place] [phone] PCP - General Family Medicine 10/27/20 documented as of this encounter
[2024-12-10 19:02] LABS: PSA, Ultra Sensitive 0.38 ng/mL
== END 2024-12-02 09:02 | disposition home or self-care (01) ==
LOC: HO.HHCL 09:01
PROVIDERS: Visit Provider Nurse Practitioner Family
DX: Z12.5 Encounter for screening for malignant neoplasm of prostate (principal)
CPT/HCPCS: 36415; 84153

== ENCOUNTER 2025-05-02 08:08 | Outpatient (REF) | payer MEDICAID, SELFPAY ==
--- OUTSIDE RECORDS SUMMARY | 2025-05-02 08:13 | XMS_ITS | Encounter Summary ---
Author Organization [employer] Address [address] [facility] [address] [place] [address] Care Team Providers Care Pillowcase Folder Name Role Phone Yenny Goldman Primary Care Provider [phone] Reason for Visit * Reason Onset Date Comments Nurse Triage 12/26/2023 Encounter Details Date Type Department Care Team ([facility] st Contact Info) Description 12/26/2023 Telephone [facility] [address] [place], [place] [phone] Yenny Goldman ANP [address] [place], [place] [phone] Nurse Triage Social History Tobacco Use Types [...] accepted this outcome Please contact pt @ [phone] documented in this encounter Plan of Treatment Upcoming Encounters Date Type Department Care Team (Late st Contact Info) Description 07/14/2025 11:15 AM EDT Telemedicine [facility] [address] [place] [address] Yenny Goldman ANP [address] [place] [address] documented as of this encounter Visit Diagnoses Not on filedocumented in this encounter Care Teams Pillowcase Folder Relationship Specialty Start Date End Date Yenny Goldman ANP [address] [place] [address] PCP - General Family Medicine 10/27/20 documented as of this encounter
[2025-05-02 11:11] LABS: MANUAL DIFF FLAG NO
[2025-05-02 11:29] LABS: Basophils Absolute Auto 0.1 X10*3/uL (0.0-0.2); Basophils Percent Auto 0.8 % (0-2); Eosinophils Absolute Auto 0.1 X10*3/uL (0.0-0.4); Eosinophils Percent Auto 1.6 % (0-4); Hemoglobin 13.8 g/dl (14.0-18.0); Imm Gran Abs Auto 0.03 X10*3/uL (0.00-0.03); Imm Gran Pct Auto 0.4 % (0.0-0.4); Lymphocytes Absolute Auto 2.2 X10*3/uL (1.2-4.9); Lymphocytes Percent Auto 30.1 % (20-40); Mean Corpuscular HGB Conc 33.7 g/dl (31.0-36.0); Mean Corpuscular Hemoglobin 28.8 pg (27.0-33.0); Mean Corpuscular Volume 85.4 fL (80.0-98.0); Monocytes Absolute Auto 0.5 X10*3/uL (0.1-1.2); Monocytes Percent Auto 6.9 % (2-11); Neutrophils Absolute Auto 4.5 x10*3/uL (2.0-8.3); Neutrophils Percent Auto 60.2 % (45-73); Platelet Count 197 X10*3/uL (160-400); Red Cell Distribution Width 13.3 % (11.0-16.0); White Blood Count 7.4 X10*3/uL (4.8-10.8)
[2025-05-02 11:44] LABS: Estimated Average Glucose 120 mg/dL; Hemoglobin A1C 146.7859 umol/L; Hemoglobin A1c % 5.8 % (<6.0)
[2025-05-02 11:58] LABS: Alanine Aminotransferase 52 U/L (0-40); Albumin Level 4.8 g/dL (3.5-5.0); Alkaline Phosphatase 63 U/L (39-117); Anion Gap 12 (12-20); Aspartate Amino Transferase 88 U/L (5-37); Bilirubin Total 0.8 mg/dL (0.0-1.0); Blood Urea Nitrogen 8 mg/dL (9-16); Calcium 9.2 mg/dL (8.4-10.2); Carbon Dioxide 28 mmol/L (22-29); Chloride 98 mmol/L (96-108); Cholesterol 126 mg/dL (<200); Estimated Glomerular Filt Rate > 60; Glucose Random 111 mg/dL (60-115); HDL Cholesterol 57 mg/dL (>40); LDL Cholesterol Calculated 54 mg/dL (<100); Potassium 4.1 mmol/L (3.3-5.1); Sodium 134 mmol/L (135-145); Triglycerides 79 mg/dL (<150)
[2025-05-02 12:02] LABS: TSH reflex Free T4 1.92 uIU/mL (0.32-4.0)
[2025-05-05 13:39] LABS: RPR Rapid Plasma Reagin NON-REACTIVE (NON-REACTIVE)
== END 2025-05-02 08:09 | disposition home or self-care (01) ==
LOC: HO.HHCL 08:08
PROVIDERS: PCP Nurse Practitioner Primary Care; Visit Provider Nurse Practitioner Primary Care
DX: E03.9 Hypothyroidism, unspecified (principal); R21 Rash and other nonspecific skin eruption; R63.0 Anorexia; I10 Essential (primary) hypertension
CPT/HCPCS: 36415; 80053; 80061; 83036; 84443; 85025; 86592

== ENCOUNTER 2025-06-17 15:09 | Outpatient (REF) | payer MEDICAID, SELFPAY ==
--- OUTSIDE RECORDS SUMMARY | 2025-06-17 16:00 | XMS_ITS | Encounter Summary ---
Author Organization [employer] Address [address] [facility] [place] [address] Care Team Providers Care Test And Balance Engineer Name Role Phone Yenny Goldman Primary Care Provider [phone] Reason for Visit * Reason Onset Date Comments Nurse Triage 12/26/2023 Encounter Details Date Type Department Care Team ([facility] st Contact Info) Description 12/26/2023 Telephone [facility] [address] [place], [place] [phone] Yenny Goldman ANP [address] [place], [place] [phone] Nurse Triage Social History Tobacco Use Types [...] accepted this outcome Please contact pt @ [phone] documented in this encounter Plan of Treatment Upcoming Encounters Date Type Department Care Team (Late st Contact Info) Description 07/14/2025 11:15 AM EDT Telemedicine [facility] [address] [place] [address] Yenny Goldman ANP [address] [place] [address] documented as of this encounter Visit Diagnoses Not on filedocumented in this encounter Care Teams Test And Balance Engineer Relationship Specialty Start Date End Date Yenny Goldman ANP [address] [place] [address] PCP - General Family Medicine 10/27/20 documented as of this encounter
[2025-06-17 16:13] LABS: Appearance Urine Clear; Glucose Urine UA Negative (Negative); PH 7.0 (5.0-9.0); Specific Gravity - Urine <= 1.005 (1.005-1.025); UMIC TRIGGER UACC YES
== END 2025-06-17 15:10 | disposition home or self-care (01) ==
LOC: HO.HHCL 15:09
PROVIDERS: PCP Nurse Practitioner Primary Care; Visit Provider Nurse Practitioner Primary Care
DX: I10 Essential (primary) hypertension (principal); R31.29 Other microscopic hematuria
CPT/HCPCS: 81001; 82043; 82570

== ENCOUNTER 2025-08-20 09:20 | Outpatient (AMB) | payer MEDICAID, SELFPAY ==
--- NOTE | 2025-08-20 09:19 | MHC.OFFVIS ---
Intake Visit Reasons: 1YR PSA Intake Note: patient presents today for: 1yr PSA urology medications: tamsulosin blood thinners: none labs done 12/02/24: PSA 0.38 Paper Products Inspector Required: No Accompanied by: Self / Same As Patient Allergies ibuprofen (From MOTRIN) Allergy (Unknown, Verified 08/20/25 09:50) Itching Medication List - Last Reconciled 08/20/25 by ARTIS DentonP- docusate sodium (Colace) 100 mg PO BID hydroxyzine pamoate 25 - 50 mg PO BEDTIME PRN levothyroxine 75 mcg PO DAILY lisinopril-hydrochlorothiazide 10-12.5 mg 1 tab PO DAILY rosuvastatin 5 mg PO DAILY terazosin 5 mg PO BEDTIME 30 days HPI Comments Details: Dinesh is a 64-year-old male patient of Dr. Goldman. He has a past medical history of obstructive sleep apnea, umbilical hernia, alcohol abuse, chronic idiopathic constipation, GERD, hypothyroidism, chronic hep C, hypertension, and cirrhosis. He presents to the office today for follow-up of his microscopic hematuria, nephrolithiasis, bladder wall thickening, and urinary hesitancy. In discussion with the patient today he reports despite compliance with Flomax he does continue to experience urinary hesitancy. He otherwise denies urinary urgency, urinary frequency, incontinence, nocturia, hematuria, dysuria, foul smelling urine, flank pain, fever, and or chills. In office urinalysis results reviewed with the patient today 2+ microscopic hematuria. Of note, patient has a history of cystoscopy outpatient with Dr. Chaitanya Salinas 02/26 noting: Bladder wall thickening, no suspicious lesions observed. Urine cytologies are as follows: 11/28 Few atypical urothelial cells, 09/28 Negative for high-grade urothelial carcinoma. Patient was previously a testicular and groin pain however does not feel this has been an issue. He reports his most bothersome urological concern is his urinary hesitancy. We did discussed potential causes of urinary hesitancy as well as further treatment options and risks and benefits of these treatment options. We did discuss lifestyle modifications such as sitting when voiding to relax pelvis to assist with bladder emptying. Patient also with a previous history of Litholink that noted: urine volume was 4.17 L, urine soidum was silghtly elevated at 152 and urine citrate was lower than recommended at 336. Urine Ca, Ox and uric acid all WNL Most recent PSA results were reviewed: 11/30 0.4. Patient does report a previous history of nicotine dependence however quit 27 years ago. He reports when he did smoke he smoked for approximately 15 years. Patient also reports smoking marijuana daily since the age of 78 years old. All questions were answered. He otherwise offers no other issues or concerns at this time. COUNTS INCLUDE 234 BEDS AT THE [facility] Medical History ANA (obstructive sleep apnea) Umbilical hernia History of alcohol abuse Chronic idiopathic constipation GERD (gastroesophageal reflux disease) Hypothyroid Chronic hepatitis C Hypertension Cirrhosis Surgical History History of umbilical hernia repair Hx of chest tube placement History of removal of cyst Family History Mother Artificial pacemaker Father Pancreatic cancer Social History Household Members: None Housing: Apartment Are you a primary cattle care worker to a significant other at home: No Do you presently have visiting nurse or other home services: No Alcohol intake: current Alcohol intake frequency: a few times a month Patient Tobacco Use Status: Never used Tobacco Substance Use Type: Marijuana Advance Directives Date on File: 11/24/16 Review of Systems Const Reports no additional complaints Eyes Reports no additional complaints ENT Reports no additional complaints Card Reports no additional complaints Resp Reports no additional complaints GI Reports no additional complaints Reports as per HPI Musc Reports as per HPI Neuro Reports no additional complaints Psych Reports no additional complaints Endo Reports no additional complaints Physical Exam Const General: cooperative, healthy appearing, comfortable, no acute distress, well developed, alert and awake Orientation/consciousness: patient oriented x3 Limitations: no limitations HEENT Head: Yes normal to inspection, Yes normocephalic and Yes atraumatic Eyes General: appearance normal, both eyes and all related structures Neck Neck: Yes normal visual inspection and Yes trachea midline Chest Chest palpation & inspection: normal inspection of the chest Resp Effort & Inspection: normal respiratory effort and able to speak in complete sentences Cardio Rate: regular rate General: Yes no CVA tenderness Back/Spine/Pelvis Back: no CVA tenderness Neuro General: patient oriented x3 Extrem General: Yes normal to inspection Psych Appearance: grossly normal and well kempt Mental Status: mental status grossly normal Speech and movement: Normal speech and movement present and Clear speech present Affect: normal affect Attitude: cooperative Thought process: Normal thought process present Thought content: Normal thought content present Insight: Fair insight present (Psych) Judgement: Fair judgement present (Psych) Results AMB Urinalysis, Automated UA Leukoctes 0 January/uL Last Edit by LARRY Georges on 08/20/25 09:29 UA Nitrite Last Edit by LARRY Georges on 08/20/25 09:29 UA Urobilinogen 0.2 mg/dL Last Edit by LARRY Georges on 08/20/25 09:29 UA Protein 0 mg/dL Last Edit by LARRY Georges on 08/20/25 09:29 UA pH 6.5 Last Edit by LARRY Georges on 08/20/25 09:29 UA Blood 80 Ron/uL Last Edit by LARRY Georges on 08/20/25 09:29 UA Specific [place] 1.010 Last Edit by LARRY Georges on 08/20/25 09:29 UA Ketone Last Edit by LARRY Georges on 08/20/25 09:29 UA Bilirubin 0 mg/dL Last Edit by LARRY Georges on 08/20/25 09:29 UA Glucose 0 mg/dL Last Edit by LARRY Georges on 08/20/25 09:29 Results Reviewed Results Reviewed: Laboratory Last Values Urine pH (Auto) 6.5 08/20/25 09:29 Specific [place] (Auto) 1.010 08/20/25 09:29 Urine Protein (Auto) 0 mg/dL 08/20/25 09:29 Glucose (UA)(Auto) 0 mg/dL 08/20/25 09:29 Urine Blood (Auto) 80 Ron/uL 08/20/25 09:29 Urine Bilirubin (Auto) 0 mg/dL 08/20/25 09:29 Urine Urobilinogen (Auto) 0.2 mg/dL 08/20/25 09:29 Leukocyte Esterase (Auto) 0 January/uL 08/20/25 09:29 Assessment & Plan Assessment & Plan (1) Kidney stone: Code(s): N20.0 - Calculus of kidney Category: Medical (2) Microscopic hematuria: Code(s): R31.29 - Other microscopic hematuria Category: Medical (3) BPH (benign prostatic hyperplasia): Code(s): N40.0 - Benign prostatic hyperplasia without lower urinary tract symptoms Category: Medical (4) History of urinary hesitancy: Code(s): Z87.898 - Personal history of other specified conditions Category: Medical Plan In office urinalysis results reviewed with the patient today; as noted above; will send for urine cytology. Stop Flomax. Start terazosin as discussed and prescribed. Most recent PSA results reviewed with the patient today; as noted above. We did discuss at length potential causes of urinary hesitancy, nephrolithiasis, bladder wall thickening, and scrotal discomfort. All questions were answered. We discussed lifestyle modifications to assist with urinary hesitancy. Follow-up in 3 months with [facility]; or sooner with any issues, concerns, and or questions. Orders: Orders AMB Urinalysis Automated Today Z13.9 - Encounter for screening, unspecified Urine Cytology Today N39.0 - Urinary tract infection, site not specified Medications: New terazosin 5 mg PO BEDTIME 30 caps 3RF 30 days N40.1 - Benign prostatic hyperplasia with lower urinary tract symptoms, R35.0 - Frequency of micturition Discontinued tamsulosin Discontinued Reason: Doctor's Order 0.4 mg PO DAILY 90 days 90 caps 3RF Patient Instructions: The patient had an opportunity to ask questions regarding the treatment plan. All questions were answered. Physical exam, labs, and imaging were discussed and reviewed in detail. As well as risks, benefits, and discussion of treatment choices. No major barriers to understanding were identified. The patient expressed understanding and agreement with the above treatment plan. The patient was made aware they should contact our office by phone for worsening of their current condition, the appearance of new symptoms, or with any questions or concerns. Compliance is encouraged with any medications and follow up testing that is ordered. It is a privilege to be allowed the opportunity to participate in? your urological care.? Again, if you have any questions or concerns If you have any questions or concerns please do not hesitate to contact me. The office is [phone]. This note is constructed using voice recognition software. While every effort has been made to ensure accuracy pressure control supervisor errors may have been included. Yours sincerely, SUN Denton-BC Coding Level of Care Code Est Pt Level 4 (41401) Complex EM visit Add On G2211 Diagnoses Kidney stone N20.0 Microscopic hematuria R31.29 BPH (benign prostatic hyperplasia) N40.0 History of urinary hesitancy Z87.898
--- OUTSIDE RECORDS SUMMARY | 2025-08-20 10:29 | XMS_ITS | Encounter Summary ---
Author Organization [employer] [facility] Address [address] [place] [address] Care Team Providers Care Psychologist Engineering Name Role Phone Yenny Goldman Primary Care Provider [phone] Encounter Details Date Type Department Care Team (Latest Contact Info) Description 09/08/2021 Abstract [facility] CONVERSIONS Dental, Provider, DDS Social History Tobacco Use Types Packs/Day Years Used Date Smoking Tobacco: Never Assessed Sex and Gender Information Value Date Recorded Sex Assigned at Male 09/05/2022 10:17 AM EDT Legal Sex Male 10:17 AM EDT Gender Identity Male 09/05/2022 10:17 AM EDT Sexual Orientation Straight 09/05/2022 10 :17 AM EDT documented as of this encounter Plan of Treatment Not on file documented as of this encounter Visit Diagnoses Not on filedocumented in this encounter Care Teams Psychologist Engineering Relationship Specialty Start Date End Date Yenny Goldman ANP [address] [place] [phone] PCP - General Family Medicine 10/27/20 documented as of this encounter
--- OUTSIDE RECORDS SUMMARY | 2025-08-20 10:29 | XMS_ITS | Encounter Summary ---
Author Organization [employer] Address [address] [place] [address] Care Team Providers Care Flatwork Washer Name Role Phone Yenny Goldman Primary Care Provider [phone] Encounter Details Date Type Department Care Team (Late st Contact Info) Description 11/25/2022 Orders Only [facility] MEDICINE [address] [place] [address] Swapna Smith LPN Social History Tobacco Use [...] on file documented as of this encounter Procedures Procedure Name Priority Date/Time Associated Diagnosis Comments POCT CREATININE GFR Routine 12/15/2022 9 :40 AM EST CYTOPATH-CELL ENHANCED Routine 11/25/2022 5:32 PM EST documented in this encounter Results * POCT Creatinine GFR (12/15/2022 9:40 AM EST) POCT Creatinine 0.9 0.5 - 1.4 mg/dL [facility] GFR POC 60 [facility] Comment:Chronic Kidney Disea se: Estimated GFR < 60 mL/min/1.92l4Kosymy Kidney Disease: Estimated GFR < 15 mL/min/1.73m2 12/15/2022 9:40 AM EST 12/19/2022 2:22 PM EST [facility] - 12/19/2022 2:24 PM EST [id number] [facility] Exter nal Provider LAB POINT OF CARE TEST DOCKED DEVICE ORDERABLES Final Result [facility] [address] [place] [address] [phone] * Cytopath-cell enhanced (11/25/2022 5:32 PM EST) 11/25/2022 5:32 PM EST 11/28/2022 11:00 AM EST [facility] - 12/01/2022 10:00 PM EST ----- ------- Name: Dinesh Rivas Age/Sex: 62/M : 1960 Unit#: [id number] [facility] Status: DEP REF Location: .LAB Disch: ----- ------- SPEC : [id number] RECD: 11/28/22 STATUS: [employer] NUM: [id number] JILLIAN: 11/25/[address]: Marva Keith [facility]- ENTERED: 11/29/22 SP TYPE: Cytology OTHR : ORDERED: Cyto-enhanced Diagnosis Urine: Few atypical urothelial cells. COMMENT: Examination of a monolayer preparation slide shows a single group of atypical but degenerated urothelial cells with increased nuclear:cytoplasmic ratios. There is a background of benign squamous cells, acute inflammatory cells, occasional benign urothelial cells, and occasional red blood cells. Clinical History Microscopic hematuria Material Received Urine Gross Description 44 cc cloudy dark yellow fluid ----- ------- Signed (signature on file) [place] 12/01/222199 ----- ------- END OF REPORT [facility] External Provider LAB [facility]T [facility] ORDERABLES Final Result [facility] [address] [place] [phone] documented in this encounter Visit Diagnoses Not on filedocumented in this encounter Care Teams Flatwork Washer Relationship Specialty Start Date End Date Yenny Goldman ANP [address] [place] [phone] PCP - General Family Medicine 10/27/20 documented as of this encounter
--- OUTSIDE RECORDS SUMMARY | 2025-08-20 10:29 | XMS_ITS | Encounter Summary ---
Author Organization [employer] [facility] Address [address] [place] [address] Care Team Providers Care Fish Roe Processor Name Role Phone Yenny Goldman Primary Care Provider [phone] Encounter Details Date Type Department Care Team (Latest Contact Info) Description 01/22/2019 Abstract [facility] CONVERSIONS Dental, Provider, DDS Social [...] on filedocumented in this encounter Care Teams Fish Roe Processor Relationship Specialty Start Date End Date Yenny Goldman ANP [address] [place] [phone] PCP - General Family Medicine 10/27/20 documented as of this encounter
--- OUTSIDE RECORDS SUMMARY | 2025-08-20 10:29 | XMS_ITS | Encounter Summary ---
Author Organization [employer] [facility] Address [address] [place] [address] Care Team Providers Care Production Maintenance Mechanic Name Role Phone Yenny Goldman Primary Care Provider [phone] Reason for Visit * Reason Comments Med Refill Encounter Details Date Type Department Care Team (Late st Contact Info) Description 11/25/2022 Refill [facility] [address] [place] [phone] Yenny Goldman ANP [address] [place], [place] [phone] Erectile dysfunction, unspecified erectile dysfunction type (Primary [...] Primary documented in this encounter Care Teams Production Maintenance Mechanic Relationship Specialty Start Date End Date Yenny Goldman ANP [address] [place] [phone] PCP - General Family Medicine 10/27/20 documented as of this encounter
--- OUTSIDE RECORDS SUMMARY | 2025-08-20 10:29 | XMS_ITS | Encounter Summary ---
Author Organization [employer] [facility] Address [address] [place] [address] Care Team Providers Care Technical Sales Director Name Role Phone Yenny Goldman Primary Care Provider [phone] Encounter Details Date Type Department Care Team (Latest Contact Info) Description 09/08/2021 Abstract [facility] CONVERSIONS Dental, Provider, DDS Social [...] on filedocumented in this encounter Care Teams Technical Sales Director Relationship Specialty Start Date End Date Yenny Goldman ANP [address] [place] [phone] PCP - General Family Medicine 10/27/20 documented as of this encounter
--- OUTSIDE RECORDS SUMMARY | 2025-08-20 10:29 | XMS_ITS | Encounter Summary ---
Author Organization [employer] Address [address] [place] [address] Care Team Providers Care Scanning Supervisor Name Role Phone Yenny Goldman Primary Care Provider [phone] Reason for Visit * Reason Onset Date Comments Nurse Triage 12/26/2023 Encounter Details Date Type Department Care Team ([facility] st Contact Info) Description 12/26/[address] [facility] [address] [place], [place] [phone] Yenny Goldman ANP [address] [place], [place] [phone] Nurse Triage Social History Tobacco Use Types [...] accepted this outcome Please contact pt @ [phone] documented in this encounter Plan of Treatment Not on file documented as of this encounter Visit Diagnoses Not on filedocumented in this encounter Care Teams Scanning Supervisor Relationship Specialty Start Date End Date Yenny Goldman ANP [address] [place] [address] PCP - General Family Medicine 10/27/20 documented as of this encounter
--- OUTSIDE RECORDS SUMMARY | 2025-08-20 10:30 | XMS_ITS | Clinical Summary ---
Author Organization [employer] Address [address] 7[address] [place] [address] Care Team Providers Care Paper Colorer Name Role Phone Yenny Goldman Primary Care Provider [phone] Allergies Active Allergy Reactions Criticality Noted Date Comments Ibuprofen Rash Low 11/29/2022 Medications * This document contains information received from the source organization and may not represent a complete record from that organization. tamsulosin (Flomax) 0.4 MG 24 hr capsule 3 Active clotrimazole (Lotrimin) 1 % creamIndications:T inea pedis of both feet APPLY TOPICALLY TO CLEAN DRY SKIN TWICE DAILY. IF NOT BETTER IN 2 WEEKS, CALL THE CLINIC 30 g 1 3 Active betamethasone valerate (Valisone) 0.1 % ointmentIndication s:Rash Apply topically if needed in the morning and at bedtime for rash. For up to 2 weeks 45 g 3 Active sildenafil (Viagra) 100 MG tabletIndications: Erectile dysfunction, unspecified erectile dysfunction type TAKE 1 TABLET 1 HOUR BEFORE SEXUAL RELATIONS ONCE DAILY NEEDED. 20 tablet 1 5 Active triamcinolone (Kenalog) 0.1 % creamIndications:R glenda APPLY TOPICALLY TO THE AFFECTED AREA(S) TWICE DAILY IN THE MORNING AND AT BEDTIME NEEDED FOR RASH 80 g 1 5 Active hydrOXYzine pamoate (Vistaril) 25 MG capsuleIndications :Difficulty sleeping TAKE 3 CAPSULES BY MOUTH AT BEDTIME NEEDED for SLEEP 90 capsule 2 5 Active lisinopril-hydroCH LOROthiazide 10-12.5 MG tabletIndications: Essential hypertension TAKE 1 TABLET BY MOUTH EVERY DAY 90 tablet 1 5 Active levothyroxine (Synthroid, Levoxyl) 75 MCG tabletIndications: Acquired hypothyroidism TAKE 1 TABLET BY MOUTH EVERY DAY ON AN EMPTY STOMACH 90 tablet 1 Active rosuvastatin (Crestor) 5 MG tabletIndications: Dyslipidemia TAKE 1 TABLET BY MOUTH EVERY DAY 90 tablet 3 Active Active Problems Problem Noted Date Diagnosed Date Anxiety 07/30/2025 Moderate major depression (CMS/HCC) 07/30/2025 Osteoarthritis of toe joint, left 07/14/2025 Overview (07/14/2025): XR 03/29/24 IMPRESSION: - Osteoarthritis first MTP. - Small posterior calcaneal spur. - No fracture, destructive process, or periostitis. Obstructive sleep apnea syndrome 05/28/2024 Overview (05/28/2024): Images from the original note were not included. willing to re-trial APAP 5-20cm. Sleep study 06/23/22 below. Healthcare maintenance 05/28/2024 Overview (05/28/2024): Eye exam: Had eye exam at [address] [place] [address] Dr Cox 2021, wears contacts Dental: self [...] Neoplasm of liver 01/31/2018 Chronic hepatitis C (CMS/HCC) 06/30/2017 Cirrhosis of liver (CMS/HCC) 06/30/2017 Hepatitis B antibody positive 06/30/2017 Acquired [...] 9.1 01/25/2024 Gastroesophageal reflux disease 03/01/2016 Encounters * This document contains information received from the source organization and may not represent a complete record from that organization. Date Type Department Care Team Description 07/30/2025 Patient Outreach [facility] [address] [place] [phone] Yenny Goldman ANP Care Coordination (CHW outreach for SDOH housing search-referral completed ) 07/23/2025 Travel 07/14/2025 11:15 AM EDT Telemedicine [facility] [address] [place] [phone] Yenny Goldman ANP Obstructive sleep apnea syndrome (Primary Dx); Cirrhosis of liver without ascites, unspecified hepatic cirrhosis type (CMS/HCC); Abnormal abdominal MRI; Screening for malignant neoplasm of colon; Screening for colon cancer; Polyarthralgia; Great toe pain, left; Osteoarthritis of toe joint, left 07/14/2025 Travel 07/13/2025 Refill [facility] [address] [place] [address] Yenny Goldman ANP Dyslipidemia 07/11/2025 Telephone [facility] [address] [place] [phone] Anastasia [place], [place] 06/11/2025 Refill [facility] [address] [place] [address] Yenny Goldman ANP Essential hypertension; Acquired hypothyroidism from Last 3 Months Immunizations Immunization Administration Dates Next Due Moderna Covid-19 Vaccine 12+ 03/25/2021,02/26/20 21 Pneumococcal Polysaccharide PPSV23 11/10/2020 Tdap 09/07/2016 Social History Tobacco Use Types Packs/Day Years Used Date Smoking Tobacco: Former Cigarettes Smokeless Tobacco: Never Tobacco Cessation:Counseling Given: Not Answered Depression Answer Date Recorded Patient Health Questionnaire-9 Score 15 07/30/2025 Patient Health Questionnaire-9 Score 15 07/30/2025 Last PHQ-9: Questionnaire Data Not on file 0 07/30/2025 Housing Stability Answer Date Recorded What is [...] Date Recorded Patient Health Questionnaire-2 Score 6 07/30/2025 Internet Access Answer Date Recorded Internet Access [...] Sign Reading Time Taken Comments Blood Pressure 127/82 04/29/2025 9:24 AM EDT Pulse 85 04/29/2025 9:24 AM EDT Temperature 36.6 C (97.9 F) 01/23/2025 10:15 AM EDT Respiratory Rate 16 04/29/2025 9:24 AM EDT Oxygen Saturation 99% 01/23/2025 10:15 AM EDT Inhaled Oxygen Concentration - - Weight 83.5 kg (184 lb) 04/29/2025 9:24 AM EDT Height 154.9 cm (5' 1 ) 04/29/2025 9:24 AM EDT Body Mass Index 34.77 04/29/2025 9:24 AM EDT Plan of Treatment Health Maintenance Due Date Last Done Comments CT Colonography 1961 Colonoscopy 1961 Dental Oral Exam 1961 Dental Prophylaxis 1961 Dental X-Ray: Bitewings 1961 Dental X-Ray: Full Mouth 1961 FIT 1961 Sigmoidoscopy 1961 Hepatitis A Vaccines (1 of 2 - Risk 2-dose series) 1980 Zoster Vaccines (1 of 2) 2011 Pneumococcal Vaccine: 50+ Years (2 of 2 - PCV) 11/10/2021 11/10/2020 RSV Patients and Patients Aged 60 years or older (1 - Risk 60-74 years 1-dose series) 2021 COVID-19 Vaccine (3 - 2024-2 6 season) 2025 03/25/2021, 02/25/2021 Influenza Vaccine (#1) 2025 SDOH Screening 10/18/2025 10/18/2024 Depression Monitoring 01/27/2026 07/30/2025 , 07/30/2025 Alcohol/Substance Use Screening 04/29/2026 04/29/2025 Disability Screening 04/29/2026 04/29/2025 Diabetes: Hemoglobin A1C 05/02/2026 025, 04/07/2022 Tobacco Screening 07/14/2026 07/14/2025 FOBT 07/28/2026 07/28/2025, 04/14/2022 DTaP/Tdap/Td Vaccines (2 - T d or Tdap) 09/07/2026 09/07/2016 Colorectal Cancer Screening 07/28/2028 FIT DNA/Cologuard 07/28/2028 07/28/2025, 04/14/2022 Lipid Panel 05/02/2030 05/02/2025, 01/24/2024, 04/07/2022 HIV Screening Completed 04/07/2022 HIB Vaccines Aged Out No longer eligi ble based on patient's age to complete this topic HPV Vaccines Aged Out No longer eligi ble based on patient's age to complete this topic Hepatitis B Vaccines Discontinued IPV Vaccines Aged Out No longer eligi ble based on patient's age to complete this topic Meningococcal B Vaccine Aged Out No l onger eligible based on patient's age to complete [...] Procedure Name Priority Date/Time Associated Diagnosis Comments LAB COLOGUARD COLON CANCER SCREEN Routine 07/28/2025 6:17 AM EDT Screening for malignant neoplasm of colon Screening for colon cancer ALBUMIN, RANDOM URINE W/CREATININE Routine 06/17/2025 3:13 PM EDT Essential hypertension URINALYSIS, COMPLETE, WITH REFLEX TO CULTURE Routine 06/17/2025 3:13 PM EDT Microscopic hematuria HEMOGLOBIN A1C Routine 05/02/2025 8:14 AM EDT Acquired hypothyroidism LIPID PANEL, STANDARD Routine 05/02/2025 8:14 AM EDT Acquired hypothyroidism HIV 1/2 ANTIGEN/ANTIBODY, FOURTH GENERATION W/RFL Routine 04/07/2022 10:36 AM EDT from Last 3 Months or Most Recently Relevant to Health Maintenance Results * Cologuard?? colon cancer screening (07/28/2025 6:17 AM EDT) Cologuard Result Negative Negative 07/31/20 10:09 AM EDT [email or web address] (CLIA #:[id number]) Comment: The Cologuard (TM) test was performed on this specimen. NEGATIVE TEST RESULT. A negative Cologuard result indicates a low likelihood that a colorectal cancer (CRC) or advanced adenoma (adenomatous polyps with more advanced pre-malignant features) is present. The chance that a person with a negative Cologuard test has a colorectal cancer is less than 1 in 1500 (negative predictive value >99.9%) or has an advanced adenoma is less than 5.3% (negative predictive value 94.7%). These data are based on a prospective cross-sectional study of 10,000 individuals at average risk for colorectal cancer who were screened with both Cologuard and colonoscopy. (Sharmaine T. et al, N Engl J Med 2014;370(14):1286- 1297) The normal value (reference range) for this assay is negative. COLOGUARD RE-SCREENING RECOMMENDATION: Periodic colorectal cancer screening is an important part of preventive healthcare for asymptomatic individuals at average risk for colorectal cancer. Following a negative Cologuard result, the [place] [employer] Society and U.S. Multi-Society Task Force screening guidelines recommend a Cologuard re-screening interval of 3 years. References: [place] [employer] Guideline for Colorectal Cancer Screening: https://www.cancer.org/cancer/kbtdl-lrbsay-qeyafe/cfgzhrqke-tkmzzqbxt-aqlppnu/ac s-rec ommendations.html.; Marcos VALDOVINOS, Doug KEE, Kizzy KEENE, Colorectal Cancer Screening: Recommendations for Physicians and Patients from the U.S. Multi-Society Task Force on Colorectal Cancer Screening , Am J Gastroenterology 2017; 112:3786-4161. TEST DESCRIPTION: Composite algorithmic analysis of stool DNA-biomarkers with hemoglobin immunoassay. Quantitative values of individual biomarkers are not reportable and are not associated with individual biomarker result reference ranges. Cologuard is intended for colorectal cancer screening of adults of either sex, 45 years or older, who are at average-risk for colorectal cancer (CRC). Cologuard has been approved for use by the U.S. FDA. The performance of Cologuard was established in a cross sectional study of average-risk adults aged 50-84. Cologuard performance in patients ages 45 to 49 years was estimated by sub-group analysis of near-age groups. Colonoscopies performed for a positive result may find as the most clinically significant lesion: colorectal cancer [4.0%], advanced adenoma (including sessile serrated polyps greater than or equal to 1cm diameter) [20%] or non- advanced adenoma [31%]; or no colorectal neoplasia [45%]. These estimates are derived from a prospective cross-sectional screening study of 10,000 individuals at average risk for colorectal cancer who were screened with both Cologuard and colonoscopy. (Sharmaine Edward et al, N Engl J Med 2014;370(14):3130-8558.) Cologuard may produce a false negative or false positive result (no colorectal cancer or precancerous polyp present at colonoscopy follow up). A negative Cologuard test result does not guarantee the absence of CRC or advanced adenoma (pre-cancer). The current Cologuard screening interval is every 3 years. ([place] [employer] and U.S. Multi-Society Task Force). Cologuard performance data in a 10,000 patient pivotal study using colonoscopy as the reference method can be accessed at the following location: www.[employer].eGood/results. Additional description of the Cologuard test process, warnings and precautions can be found at www.[employer].com. Stool specimen (specimen) 07/28/2025 6:17 AM EDT 07/29/2025 10:57 AM EDT [facility] MOLECULAR DIAGNOSTICS ORDERA BLES Final Result [email or web address] (CLIA #:[id number]) [address] [address], * (ABNORMAL) Urinalysis, Complete, with Reflex to Culture (06/17/2025 3:13 PM EDT) Color Urine Yellow [facility] Appearance Urine Clear [facility] PH 7.0 5.0 - 9.0 [facility] Glucose Urine UA Negative Negative mg/dL [facility] Urine Blood Small (1+)(A) Negative [facility] Specific [place] - Urine <=1.005 1.005 - 1.025 [facility] Urine Protein Negative Neg-Trace mg/dL [facility] Urine Ketones Negative Negative mg/dL [facility] Nitrite Urine Negative Negative [facility] Leukocyte Esterase Urine Negative Negative [facility] RBC Urine 0-2 0 - 2 /HPF [facility] Urine WBC 0-5 0 - 5 /HPF [facility] Urine Squamous Epithelial Cell 0-2 0 - 2 /HPF [facility] Urine Bacteria None Seen None Seen [facility] Hyaline Casts, Urine 0-2 0 - 2 /LPF [facility] Urine 06/17/2025 3:13 PM EDT 06/17/2025 4:02 PM EDT Narrative [facility] - 06/17/2025 4:26 PM EDT Urine, Clean Catch [facility] LAB URINE ORDERABLES Final Resul t [facility] [address] [place] [phone] * Albumin, Random Urine W/Creatinine (06/17/2025 3:13 PM EDT) Creatinine, Urine 16.84 mg/dL [facility] Microalbumin Urine <5.0 mg/L [facility] Microalbum Creatinine Ratio Ur TNP <30 ug/mg cr [facility] Comment:Unable to calculate albumin/creatinine ratio due to lowmicroalbumin or creatinine result. Urine (Urine, Random) 06/17/2025 3:13 PM EDT 06/17/2025 4:02 PM EDT Yenny Goldman ANP LAB URINE ORDERABLES Final Resul t Performing Organization Address [facility] de Phone Number [facility] [address] [place] [phone] * Hemoglobin A1c (05/02/2025 8:14 AM EDT) Hemoglobin A1c 5.8 <6.0 % [facility] Comment:Hemoglobin A1C Refer ence Range Adults: 4.8 - 6.0 % Non diabetic: < 6.0 % Goal: < 7.0 %Additional Action Suggested: > 8.0 %Note: Hemoglobin A1c results are invalid for patients with abnormal amounts of HbF. Blood transfusions may impact the HbA1c concentration in the patient sample. Estimated Average Glucose 120 mg/dL [facility] Comment:eAG = Estimated ave rage glucose which is %A1C expressed asaverage glucose, using the formula of the C7G-VsifkjbGgzjuuh Glucose study (ADAG), Diabetes Care, Vol.31,#8,2007 Blood Venous blood specimen / Unknown 05/02/2025 8:14 AM EDT 05/02/2025 11:08 AM EDT Yenny Goldman ANP LAB BLOOD ORDERABLES Final Resul t Performing Organization Address [facility] Co de Phone Number [facility] [address] [place] [phone] * Lipid Panel, Standard (05/02/2025 8:14 AM EDT) Triglycerides 79 <150 mg/dL [facility] Comment:Desirable Triglyceri de: less than 150 mg/dLBorderline High Triglyceride 150-199 mg/dLHigh Triglyceride: 200-499 mg/dLVery High Triglyceride: greater than or equal to 5OO mg/dL Cholesterol 126 <200 mg/dL [facility] Comment:Desirable Cholestero l: less than 200 mg/dLBorderline High Cholesterol: 200-239 mg/dLHigh Cholesterol: greater than 239 mg/dL LDL Cholesterol Calculated 54 <100 mg/dL [facility] Comment:Desirable LDL: less than 100 mg/dLNear Optimal/Above Optimal LDL: 110- 129 mg/dLBorderline High LDL: 130-159 mg/dLHigh LDL: 160-189 mg/dLVery High LDL: greater than or equal to 190 mg/dL HDL Cholesterol 57 >40 mg/dL [facility] Comment:Desirable HDL: great er than 40 mg/dL Note: This HDL assay may give artificially low results in patients with liver disease. Blood Venous blood specimen / Unknown 05/02/2025 8:14 AM EDT 05/02/2025 11:08 AM EDT [facility] LAB BLOOD ORDERABLES Final Resul t [facility] [address] [place] [phone] * HIV 1/2 ANTIGEN/ANTIBODY,FOURTH GENERATION W/RFL (04/07/2022 10:36 AM EDT) HIV-1/2 ANTIGEN AND ANTIBODIES, 4TH GENERATION W/ REFLEX NON-[facility] Comment: HIV-1 antigen and HIV-1/HIV-2 antibodies were not detected. There is no laboratory evidence of HIV infection. PLEASE NOTE: This information has been disclosed to you from records whose confidentiality may be protected by state law. If your state requires such protection, then the state law prohibits you from making any further disclosure of the information without the specific written consent of the person to whom it pertains, or as otherwise permitted by law. A general authorization for the release of medical or other information is NOT sufficient for this purpose. For additional information please refer to http://education.Lua/faq/TKB379 (This link is being provided for informational/ educational purposes only.) The performance of this assay has not been clinically validated in patients less than 2 years old. 04/07/2022 10:3 6 AM EDT us Yenny Goldman [facility] LAB BLOOD ORDERABLES Final Resul t [facility] [address] from Last 3 Months or Most Recently Relevant to Health Maintenance Insurance [facility] C3 DENTAL-[facility] MEDICAID STAND ADULT Care Teams Paper Colorer Relationship Specialty Start Date End Date Yenny Goldman ANP [address] [place] [phone] PCP - General Family Medicine 10/27/20
--- OUTSIDE RECORDS SUMMARY | 2025-08-20 10:30 | XMS_ITS | Encounter Summary ---
Author Organization [employer] Address [address] [place] [address] Care Team Providers Care Retirement Assistant Name Role Phone Yenny Goldman Primary Care Provider [phone] Reason for Visit * Reason Comments Med Refill Encounter Details Date Type Department Care Team (Late st Contact Info) Description [address] [facility] [address] [place], [place] [phone] Yenny Goldman ANP [address] [place], [place] [phone] Erectile dysfunction, unspecified erectile dysfunction type Social [...] documented as of this encounter Care Teams Retirement Assistant Relationship Specialty Start Date End Date Yenny Goldman ANP [address] [place] [phone] PCP - General Family Medicine 10/27/20 documented as of this encounter
--- OUTSIDE RECORDS SUMMARY | 2025-08-20 10:30 | XMS_ITS | Encounter Summary ---
Author Organization [employer] Address [address] [place] [address] Care Team Providers Care Operations Vocational Instructor Name Role Phone Yenny Goldman Primary Care Provider [phone] Encounter Details Date Type Department Care Team (Late st Contact Info) Description 03/28/2023 Telephone [facility] ADULT DENTAL [address] [place], [place] [phone] Angela Johnson DDS [address] [place], [place] [phone] Social History Tobacco Use Types Packs/Day Years [...] if case is back in from lab? DR documented in this encounter Plan of Treatment Not on file documented as of this encounter Visit Diagnoses Not on filedocumented in this encounter Care Teams Operations Vocational Instructor Relationship Specialty Start Date End Date Yenny Goldman ANP [address] [place] [phone] PCP - General Family Medicine 10/27/20 documented as of this encounter
--- OUTSIDE RECORDS SUMMARY | 2025-08-20 10:30 | XMS_ITS | Encounter Summary ---
Author Organization [employer] Address [address] [place] [address] Care Team Providers Care Engine Wiper Name Role Phone Yenny Goldman Primary Care Provider [phone] Reason for Visit * Reason Comments Med Refill Encounter Details Date Type Department Care Team (Late st Contact Info) Description 04/10/2024 Refill [facility] [address] [place], [place] [phone] Yenny Goldman ANP [address] [place], [place] [phone] Erectile dysfunction, unspecified erectile dysfunction type Social [...] documented as of this encounter Care Teams Engine Wiper Relationship Specialty Start Date End Date Yenny Goldman ANP [address] [place] [phone] PCP - General Family Medicine 10/27/20 documented as of this encounter
--- OUTSIDE RECORDS SUMMARY | 2025-08-20 10:30 | XMS_ITS | Encounter Summary ---
Author Organization [employer] Address [address] [place] [address] Care Team Providers Care Sales Merchandiser Name Role Phone Yenny Goldman SWETA Primary Care Provider [phone] Reason for Visit * Reason Onset Date Comments Appointment 03/08/2023 Encounter Details Date Type Department Care Team (Late st Contact Info) Description 03/08/2023 Telephone [facility] ADULT D[facility] [address] [place], [place] [phone] Angela Johnson DDS [address] [place], [place] [phone] Appointment Social History Tobacco Use Types Packs/Day [...] would be too late. He needs an spanish language lecturer appt. Advised by Tim to reach out to you asto when patient an be fit into schedule DR documented in this encounter Plan of Treatment Not on file documented as of this encounter Visit Diagnoses Not on filedocumented in this encounter Care Teams Sales Merchandiser Relationship Specialty Start Date End Date Yenny Goldman ANP [address] [place] [phone] PCP - General Family Medicine 10/27/20 documented as of this encounter
--- OUTSIDE RECORDS SUMMARY | 2025-08-20 10:30 | XMS_ITS | Encounter Summary ---
Author Organization [employer] Address [address] [place] [address] Care Team Providers Care Industrial Education Teacher Name Role Phone Yenny Goldman Primary Care Provider Reason for Visit * Reason Comments Med Refill Encounter Details Date Type Department Care Team (Late st Contact Info) Description 11/20/2024 Refill [facility] [address] [place], [place] [phone] Yenny Goldman ANP [address] [place], [place] [phone] Erectile dysfunction, unspecified erectile dysfunction type Social [...] documented as of this encounter Care Teams Industrial Education Teacher Relationship Specialty Start Date End Date Yenny Goldman ANP [address] [place] [phone] PCP - General Family Medicine 10/27/20 documented as of this encounter
--- OUTSIDE RECORDS SUMMARY | 2025-08-20 10:30 | XMS_ITS | Encounter Summary ---
Author Organization [employer] Address [address] [place] [address] Care Team Providers Care Bus Transportation Manager Name Role Phone Yenny Goldman Primary Care Provider Reason for Visit * Reason Comments Med Refill Encounter Details Date Type Department Care Team (Late st Contact Info) Description 10/09/2024 Refill [facility] [address] [place], [place] [phone] Yenny Goldman ANP [address] [place], [place] [phone] Erectile dysfunction, unspecified erectile dysfunction type Social [...] documented as of this encounter Care Teams Bus Transportation Manager Relationship Specialty Start Date End Date Yenny Goldman ANP [address] [place] [phone] PCP - General Family Medicine 10/27/20 documented as of this encounter
--- OUTSIDE RECORDS SUMMARY | 2025-08-20 10:30 | XMS_ITS | Encounter Summary ---
Author Organization [facility] [employer] [facility] Address [address] [place] [address] Care Team Providers Care Skein Yard Drier Name Role Phone Yenny Goldman Primary Care Provider [phone] Encounter Details Date Type Department Care Team (Late st Contact Info) Description 03/27/2023 Orders Only [facility] MED & PEDS [address] [place], [place] [phone] Madiha Krueger LPN Social History Tobacco Use [...] on filedocumented in this encounter Care Teams Skein Yard Drier Relationship Specialty Start Date End Date Yenny Goldman ANP [address] [place] [phone] PCP - General Family Medicine 10/27/20 documented as of this encounter
== END 2025-08-20 09:56 | disposition home or self-care (01) ==
LOC: HO.HUSH 09:21
PROVIDERS: PCP Nurse Practitioner Primary Care; Visit Provider Nurse Practitioner Family
DX: N20.0 Calculus of kidney (principal); R31.29 Other microscopic hematuria; N40.0 Benign prostatic hyperplasia without lower urinary tract symptoms; Z87.898 Personal history of other specified conditions; Z13.9 Encounter for screening, unspecified
CPT/HCPCS: 99214

== ENCOUNTER 2025-08-20 09:20 | Outpatient (REF) | payer MEDICAID, SELFPAY ==
--- OUTSIDE RECORDS SUMMARY | 2025-08-20 19:39 | XMS_ITS | Encounter Summary ---
Author Organization [employer] Address [address] 7t [place] [address] Care Team Providers Care Mri Manager Name Role Phone Yenny Goldman Primary Care Provider [phone] Reason for Visit * Reason Comments Med Refill Encounter Details Date Type Department Care Team (Late st Contact Info) Description 11/20/2024 Refill [facility] MEDICINE [address] [place], [place] [phone] Yenny Goldman ANP 230 [place], [place] [phone] Erectile dysfunction, unspecified erectile dysfunction type Social [...] documented as of this encounter Care Teams Mri Manager Relationship Specialty Start Date End Date Yenny Goldman ANP [address] [place] [phone] PCP - General Family Medicine 10/27/20 documented as of this encounter
--- OUTSIDE RECORDS SUMMARY | 2025-08-20 19:39 | XMS_ITS | Encounter Summary ---
Author Organization [employer] [facility] Address [address] 7t [place] [address] Care Team Providers Care Glass Maker Name Role Phone Yenny Goldman Primary Care Provider [phone] Encounter Details Date Type Department Care Team (Latest Contact Info) Description 09/08/2021 Abstract [facility] CONVERSIONS Dental, Provider, DDS Social History [...] on filedocumented in this encounter Care Teams Glass Maker Relationship Specialty Start Date End Date Yenny Goldman ANP [address] [place] [address] PCP - General Family Medicine 10/27/20 documented as of this encounter
--- OUTSIDE RECORDS SUMMARY | 2025-08-20 19:39 | XMS_ITS | Clinical Summary ---
Author Organization [employer] Address [address] 7t [place] [address] Care Team Providers Care Assistant Field Hockey Coach Name Role Phone Yenny Goldman Primary Care Provider [phone] Allergies Active Allergy Reactions Criticality Noted Date [...] (05/28/2024): Eye exam: Had eye exam at [address] [place] [address] Dr Cox 2021, wears contacts Dental: self [...] Department Care Team Description 07/30/2025 Patient Outreach [facility] MED[facility]INE [address] [place] [phone] Yenny Goldman ANP Care Coordination (CHW outreach for SDOH housing search-referral completed ) 07/23/2025 Travel 07/14/2025 11:15 AM EDT Telemedicine [facility] [address] [place] [phone] Yenny Goldman ANP Obstructive sleep apnea syndrome (Primary Dx); Cirrhosis of liver without ascites, unspecified hepatic cirrhosis type (CMS/HCC); Abnormal abdominal MRI; Screening for malignant neoplasm of colon; Screening for colon cancer; Polyarthralgia; Great toe pain, left; Osteoarthritis of toe joint, left 07/14/2025 Travel 07/13/2025 Refill [facility] MEDICINE 230 [place] [address] Yenny Goldman ANP Dyslipidemia 07/11/2025 Telephone [facility] [address] [place] [address] Anastasia Turner, [place] 06/11/2025 Refill [facility] MED[facility]INE [address] [place] [address] Yenny Goldman ANP Essential hypertension; Acquired hypothyroidism [...] Result Negative Negative 07/31/20 10:09 AM EDT [employer] (CLIA #:[id number]) Comment: The Cologuard (TM) test was performed [...] cancer. Following a negative Cologuard result, the Stateless Cancer Society and U.S. Multi-Society Task Force screening guidelines recommend a Cologuard re-screening interval of 3 years. References: [employer]eless Cancer Society Guideline for Colorectal Cancer Screening: https://www.cancer.org/cancer/qhltf-sifhdq-bvchhc/zfecoaezr-smuzrrsro-tnlfstc/ac s-rec ommendations.html.; Marcos VALDOVINOS, Doug KEE, Kizzy KEENE, Colorectal Cancer Screening: Recommendations for Physicians and Patients from the U.S. Multi-Society Task Force on Colorectal Cancer Screening , Am J Gastroenterology 2017; 112:7767-2935. TEST DESCRIPTION: Composite algorithmic analysis of stool [...] Edward et al, N Engl J Med 2014;370(14):4248-9099.) Cologuard may produce a false negative or false positive result (no colorectal cancer or precancerous polyp present at colonoscopy follow up). A negative Cologuard test result does not guarantee the absence of CRC or advanced adenoma (pre-cancer). The current Cologuard screening interval is every 3 years. (Stateless Cancer Society and U.S. Multi-Society Task Force). Cologuard performance data in a 10,000 patient pivotal study using colonoscopy as the reference method can be accessed at the following location: [email or web address].[email or web address].DailyTicket/results. Additional description of the Cologuard test process, warnings and precautions can be found at www.MiMediard.com. Stool specimen (specimen) 07/28/2025 6:17 AM EDT 07/29/2025 10:57 AM EDT [facility] MOLECULAR DIAGNOSTICS ORDERA BLES Final Result [employer] (CLIA #:[id number]) [address] [place] [phone], * (ABNORMAL) Urinalysis, Complete, with Reflex to Culture (06/17/2025 3:13 PM EDT) Color Urine Yellow [facility] Appearance Urine Clear [facility] PH 7.0 5.0 - 9.0 [facility] Glucose Urine UA Negative Negative mg/dL [facility] Urine Blood Small (1+)(A) Negative [facility] Specific [place] - Urine <=1.005 1.005 - 1.025 [facility] Urine Protein Negative Neg-Trace mg/dL [facility] Urine Ketones Negative Negative mg/dL [facility] Nitrite Urine Negative Negative [facility] Leukocyte Esterase Urine Negative Negative [facility] RBC Urine 0-2 0 - 2 /HPF [facility] Urine WBC 0-5 0 - 5 /HPF [facility] Urine Squamous Epithelial Cell 0-2 0 - 2 /HPF [facility] Urine Bacteria None Seen None Seen [facility] Hyaline Casts, Urine 0-2 0 - 2 /LPF [facility] Urine 06/17/2025 3:13 PM EDT 06/17/2025 4:02 PM EDT Narrative [facility] - 06/17/2025 4:26 PM EDT Urine, Clean Catch Pending sale to [facility] LAB URINE ORDERABLES Final Resul t [facility] [address] [place] [phone] * Albumin, Random Urine W/Creatinine (06/17/2025 3:13 PM EDT) Creatinine, Urine 16.84 mg/dL [facility] Microalbumin Urine <5.0 mg/L [facility] Microalbum Creatinine Ratio Ur TNP <30 ug/mg cr [facility] Comment:Unable to calculate albumin/creatinine ratio due to lowmicroalbumin or creatinine result. Urine (Urine, Random) 06/17/2025 3:13 PM EDT 06/17/2025 4:02 PM EDT Yenny Goldman ANP LAB URINE ORDERABLES Final Resul t Performing Organization Address [facility] de Phone Number [facility] [address] [place] [phone] * Hemoglobin A1c (05/02/2025 8:14 AM EDT) Hemoglobin A1c 5.8 <6.0 % [facility] Comment:Hemoglobin A1C Refer ence Range Adults: 4.8 - 6.0 % Non diabetic: < 6.0 % Goal: < 7.0 %Additional Action Suggested: > 8.0 %Note: Hemoglobin A1c results are invalid for patients with abnormal amounts of HbF. Blood transfusions may impact the HbA1c concentration in the patient sample. Estimated Average Glucose 120 mg/dL [facility] Comment:eAG = Estimated ave rage glucose which is %A1C expressed asaverage glucose, using the formula of the U7P-FotuveuTkbiqpu Glucose study (ADAG), Diabetes Care, Vol.31,#8,2007 Blood Venous blood specimen / Unknown 05/02/2025 8:14 AM EDT 05/02/2025 11:08 AM EDT Yenny Goldman ANP LAB BLOOD ORDERABLES Final Resul t Performing Organization Address [facility] Co de Phone Number [facility] [address] [place] [phone] * Lipid Panel, Standard (05/02/2025 8:14 AM EDT) Triglycerides 79 <150 mg/dL [facility] Comment:Desirable Triglyceri de: less than 150 mg/dLBorderline High Triglyceride 150-199 mg/dLHigh Triglyceride: 200-499 mg/dLVery High Triglyceride: greater than or equal to 5OO mg/dL Cholesterol 126 <200 mg/dL [facility] Comment:Desirable Cholestero l: less than 200 mg/dLBorderline High Cholesterol: 200-239 mg/dLHigh Cholesterol: greater than 239 mg/dL LDL Cholesterol Calculated 54 <100 mg/dL [facility] Comment:Desirable LDL: less than 100 mg/dLNear Optimal/Above Optimal LDL: 110- 129 mg/dLBorderline High LDL: 130-159 mg/dLHigh LDL: 160-189 mg/dLVery High LDL: greater than or equal to 190 mg/dL HDL Cholesterol 57 >40 mg/dL [facility] Comment:Desirable HDL: great er than 40 mg/dL Note: This HDL assay may give artificially low results in patients with liver disease. Blood Venous blood specimen / Unknown 05/02/2025 8:14 AM EDT 05/02/2025 11:08 AM EDT Pending sale to [facility] LAB BLOOD ORDERABLES Final Resul t [facility] [address] [place] [phone] * HIV 1/2 ANTIGEN/ANTIBODY,FOURTH GENERATION W/RFL [...] purpose. For additional information please refer to http://education.Perzo/faq/TXZ757 (This link is being provided for informational/ educational purposes only.) The performance of this assay has not been clinically validated in patients less than 2 years old. 04/07/2022 10:3 6 AM EDT us Yenny Goldman [facility] LAB BLOOD ORDERABLES Final Resul t [facility] [address] from Last 3 Months or Most Recently Relevant to Health Maintenance Insurance [facility] C3 DENTAL-[facility] MEDICAID STAND ADULT Care Teams Assistant Field Hockey Coach Relationship Specialty Start Date End Date Yenny Goldman ANP [address] [place] [address] PCP - General Family Medicine 10/27/20
--- OUTSIDE RECORDS SUMMARY | 2025-08-20 19:39 | XMS_ITS | Encounter Summary ---
Author Organization [employer] [facility] Address [address] 7t [place] [address] Care Team Providers Care Plaster Mixer Name Role Phone Yenny Goldman Primary Care Provider [phone] Encounter Details Date Type Department Care Team (Latest Contact Info) Description 01/22/[address] [facility] CONVERSIONS Dental, Provider, DDS Social History [...] on filedocumented in this encounter Care Teams Plaster Mixer Relationship Specialty Start Date End Date Yenny Goldman ANP [address] [place] [phone] PCP - General Family Medicine 10/27/20 documented as of this encounter
--- OUTSIDE RECORDS SUMMARY | 2025-08-20 19:39 | XMS_ITS | Encounter Summary ---
Author Organization [employer] [facility] Address [address] [facility] 7t [place] [address] Care Team Providers Care Quality Control Head Name Role Phone Yenny Goldman Primary Care Provider [phone] Reason for Visit * Reason Comments Med Refill Encounter Details Date Type Department Care Team (Late st Contact Info) Description 11/25/[address] [facility] MEDICINE [address] [place] [phone] Yenny Goldman ANP 230 [place], [place] [phone] Erectile dysfunction, unspecified erectile dysfunction type (Primary [...] Primary documented in this encounter Care Teams Quality Control Head Relationship Specialty Start Date End Date Yenny Goldman ANP [address] [place] [phone] PCP - General Family Medicine 10/27/20 documented as of this encounter
--- OUTSIDE RECORDS SUMMARY | 2025-08-20 19:39 | XMS_ITS | Encounter Summary ---
Author Organization [employer] Address [address]t [place] [address] Care Team Providers Care Diesel Dinkey Operator Name Role Phone Yenny Goldman Primary Care Provider [phone] Reason for Visit * Reason Comments Med Refill Encounter Details Date Type Department Care Team (Late st Contact Info) Description 04/10/2024 Refill [facility] MEDICINE [address] [place], [place] [phone] Yenny Goldman ANP 230 [place], [place] [phone] Erectile dysfunction, unspecified erectile dysfunction type Social [...] documented as of this encounter Care Teams Diesel Dinkey Operator Relationship Specialty Start Date End Date Yenny Goldman ANP [address] [place] [phone] PCP - General Family Medicine 10/27/20 documented as of this encounter
--- OUTSIDE RECORDS SUMMARY | 2025-08-20 19:39 | XMS_ITS | Encounter Summary ---
Author Organization [employer] [facility] Address [address] 7t [place] [address] Care Team Providers Care Open Soaper Tender Name Role Phone Yenny Goldman Primary Care Provider [phone] Encounter Details Date Type Department Care Team (Late st Contact Info) Description 03/27/2023 Orders Only [facility] MED & PEDS [address] [place], [place] [phone] Madiha Krueger LPN Social History Tobacco Use [...] on filedocumented in this encounter Care Teams Open Soaper Tender Relationship Specialty Start Date End Date Yenny Goldman ANP 230 [place] [address] PCP - General Family Medicine 10/27/20 documented as of this encounter
--- OUTSIDE RECORDS SUMMARY | 2025-08-20 19:39 | XMS_ITS | Encounter Summary ---
Author Organization [employer] Address [address] 7t [place] [address] Care Team Providers Care Donation Specialist Name Role Phone Yenny Goldman Primary Care Provider [phone] Encounter Details Date Type Department Care Team (Late st Contact Info) Description 03/28/2023 Telephone C ADULT DENTAL [address] [place], [place] [phone] Angela Johnson DDS 230 [place], [place] [phone] Social History Tobacco Use Types Packs/Day Years [...] on filedocumented in this encounter Care Teams Donation Specialist Relationship Specialty Start Date End Date Yenny Goldman ANP [address] [place] [phone] PCP - General Family Medicine 10/27/20 documented as of this encounter
--- OUTSIDE RECORDS SUMMARY | 2025-08-20 19:39 | XMS_ITS | Encounter Summary ---
Author Organization [employer] [facility] Address [address]t [place] [address] Care Team Providers Care Cell Tender Name Role Phone Yenny Goldman Primary Care Provider Encounter Details Date Type Department Care Team (Latest Contact Info) Description 09/08/2021 Abstract [facility] CONVERSIONS Dental, Provider, DDS Social History [...] on filedocumented in this encounter Care Teams Cell Tender Relationship Specialty Start Date End Date Yenny Goldman ANP [address] [place] [phone] PCP - General Family Medicine 10/27/20 documented as of this encounter
--- OUTSIDE RECORDS SUMMARY | 2025-08-20 19:39 | XMS_ITS | Encounter Summary ---
Author Organization [employer] Address [address] 7t [place] [address] Care Team Providers Care Manager Product Management Name Role Phone Yenny Goldman Primary Care Provider [phone] Reason for Visit * Reason Comments Med Refill Encounter Details Date Type Department Care Team (Late st Contact Info) Description 10/09/2024 Refill [facility] MEDICINE 230 [place], [place] [phone] Yenny Goldman ANP 230 [place], [place] [phone] Erectile dysfunction, unspecified erectile dysfunction type Social [...] documented as of this encounter Care Teams Manager Product Management Relationship Specialty Start Date End Date Yenny Goldman ANP [address] [place] [address] PCP - General Family Medicine 10/27/20 documented as of this encounter
--- OUTSIDE RECORDS SUMMARY | 2025-08-20 19:39 | XMS_ITS | Encounter Summary ---
Author Organization [employer] Address [address] 7t [place] [address] Care Team Providers Care Odd Piece Checker Name Role Phone Yenny Goldman Primary Care Provider [phone] Encounter Details Date Type Department Care Team (Late st Contact Info) Description 11/25/2022 Orders Only [facility] MEDICINE [address] [place] [address] Swapna Smith LPN Social History Tobacco Use [...] POCT Creatinine 0.9 0.5 - 1.4 mg/dL [facility] GFR POC 60 [facility] Comment:Chronic Kidney Disea se: Estimated GFR < 60 mL/min/1.62u7Fupqkm Kidney Disease: Estimated GFR < 15 mL/min/1.73m2 12/15/2022 9:40 AM EST 12/19/2022 2:22 PM EST [facility] - 12/19/2022 2:24 PM EST [phone] [facility] Exter nal Provider LAB POINT OF CARE TEST DOCKED DEVICE ORDERABLES Final Result [facility] [address] [place] [phone] [phone] * Cytopath-cell enhanced (11/25/2022 5:32 PM EST) 11/25/2022 5:32 PM EST 11/28/2022 11:00 AM EST [facility] - 12/01/2022 10:00 PM EST ----- ------- Name: Dinesh Riavs Age/Sex: 62/M : 1960 Unit#: [id number] Attend Dr[facility] Status: DEP REF Location: .LAB Disch: ----- ------- SPEC : [id number] RECD: 11/28/22 STATUS: [employer] NUM: [id number] JILLIAN: 11/25/[address]: Marva Keith [facility]- ENTERED: 11/29/22 SP TYPE: Cytology OTHR : [...] ----- ------- Signed (signature on file) Rosa Denver 12/01/222199 ----- ------- END OF REPORT [facility] External Provider LAB [facility]T [facility] ORDERABLES Final Result [facility] [address] [place] [phone] documented in this encounter Visit Diagnoses Not on filedocumented in this encounter Care Teams Odd Piece Checker Relationship Specialty Start Date End Date Yenny Goldman ANP [address] [place] [address] PCP - General Family Medicine 10/27/20 documented as of this encounter
--- OUTSIDE RECORDS SUMMARY | 2025-08-20 19:39 | XMS_ITS | Encounter Summary ---
Author Organization [employer] Address [address] [place] [address] Care Team Providers Care Retort Engineer Name Role Phone Yenny Goldman Primary Care Provider [phone] Reason for Visit * Reason Comments Med Refill Encounter Details Date Type Department Care Team (Late st Contact Info) Description 2024 Refill [facility] MEDICINE 230 [place], [place] [phone] Yenny Goldman ANP 230 [place], [place] [phone] Erectile dysfunction, unspecified erectile dysfunction type Social [...] documented as of this encounter Care Teams Retort Engineer Relationship Specialty Start Date End Date Yenny Goldman ANP [address] [place] [phone] PCP - General Family Medicine 10/27/20 documented as of this encounter
--- OUTSIDE RECORDS SUMMARY | 2025-08-20 19:39 | XMS_ITS | Encounter Summary ---
Author Organization [employer] Address [address] [place] [address] Care Team Providers Care Hooker Off Name Role Phone Yenny Goldman Primary Care Provider [phone] Reason for Visit * Reason Onset Date Comments Nurse Triage 12/26/2023 Encounter Details Date Type Department Care Team ([facility] st Contact Info) Description 12/26/2023 Telephone [facility] MEDICINE 230 [place], [place] [phone] Yenny Goldman ANP 230 [place], [place] [phone] Nurse Triage Social History Tobacco Use Types [...] accepted this outcome Please contact pt @ [phone] documented in this encounter Plan of Treatment Not on file documented as of this encounter Visit Diagnoses Not on filedocumented in this encounter Care Teams Hooker Off Relationship Specialty Start Date End Date Yenny Goldman ANP 230 [place] [address] PCP - General Family Medicine 10/27/20 documented as of this encounter
--- OUTSIDE RECORDS SUMMARY | 2025-08-20 19:39 | XMS_ITS | Encounter Summary ---
Author Organization [employer] Address [address] [place] [address] Care Team Providers Care Email Marketing Coordinator Name Role Phone Yenny Goldman SWETA Primary Care Provider [phone] Reason for Visit * Reason Onset Date Comments Appointment 03/08/2023 Encounter Details Date Type Department Care Team (Late st Contact Info) Description 03/08/[address] [facility] ADULT DENTAL 230 [place], [place] [phone] Angela Johnson DDS 230 [place], [place] [phone] Appointment Social History Tobacco Use Types Packs/Day [...] would be too late. He needs an asbestos siding installer appt. Advised by Tim to reach out to you asto when patient an be fit into schedule DR documented in this encounter Plan of Treatment Not on file documented as of this encounter Visit Diagnoses Not on filedocumented in this encounter Care Teams Email Marketing Coordinator Relationship Specialty Start Date End Date Yenny Goldman ANP [address] [place] [phone] PCP - General Family Medicine 10/27/20 documented as of this encounter
== END 2025-08-20 09:21 | disposition home or self-care (01) ==
LOC: HO.LNP 09:20
PROVIDERS: PCP Nurse Practitioner Primary Care; Visit Provider Nurse Practitioner Family
DX: N39.0 Urinary tract infection, site not specified (principal); N20.0 Calculus of kidney; R31.29 Other microscopic hematuria; N40.1 Benign prostatic hyperplasia with lower urinary tract symptoms; R35.0 Frequency of micturition; Z87.898 Personal history of other specified conditions; Z13.89 Encounter for screening for other disorder
CPT/HCPCS: 81003; 88112; 99212